=== PATIENT | male | born 1975 | race Caucasian/White ===

== ENCOUNTER 2017-09-01 08:10 | Emergency (ER) | payer MEDICAID ==
[~2017-09-01] VITALS: Ht 167.6 cm; Wt 90.7 kg
--- NOTE | 2017-09-01 08:25 | NUR ---
HEARING AND "SEEING" VOICES X 3 DAYS DENIES SI/HI. ADMITS TO USING METH AND COCAINE YESTERDAY
[2017-09-01] MEDS ORDERED: OLANZAPINE 5 MG TABLET ONE (08:37)
[2017-09-01] MEDS ORDERED: OLANZAPINE 5 MG TABLET PO ONE (09:00)
[2017-09-01 09:23] LABS: BASOPHILS # (AUTO) 0.4 /CMM (0.0-0.2); BASOPHILS % (AUTO) 1.5 % (0.0-2.0); EOSINOPHILS % (AUTO) 0.1 % (0.0-6.0); HEMATOCRIT 47 % (39-51); HEMOGLOBIN 16.4 g/dL (13.5-17.5); LYMPHOCYTES # (AUTO) 2.3 /CMM (0.8-4.8); LYMPHOCYTES % (AUTO) 9.3 % (20.0-44.0); MEAN CORPUSCULAR HGB CONC 35 g/dl (31.0-36.0); MEAN CORPUSCULAR VOLUME 87 fL (80-96); MONOCYTES # (AUTO) 2.2 /CMM (0.1-1.30); MONOCYTES % (AUTO) 9.2 % (2.0-12.0); NEUTROPHILS # (AUTO) 19.5 /CMM (1.8-8.9); NEUTROPHILS % (AUTO) 79.9 % (43.0-81.0); PLATELET COUNT (AUTO) 311 /CMM (150-450); RDW COEFFICIENT OF VARIATION 13.4 (11.5-15.0); RED BLOOD CELL COUNT(AUTO) 5.35 MIL/uL (4.5-6.0); WHITE BLOOD COUNT (AUTO) 24.4 K/uL (4.3-11.0)
[2017-09-01 09:42] LABS: ALANINE AMINOTRANSFERASE 126 U/L (12-78); ALBUMIN 4.9 g/dL (3.4-5.0); ALKALINE PHOSPHATASE 66 U/L (46-116); ASPARTATE AMINOTRANSFERASE 156 U/L (15-37); BILIRUBIN,DIRECT 0.1 mg/dL (0.0-0.2); BILIRUBIN,TOTAL 0.8 mg/dL (0.2-1.0); CALCIUM, SERUM 9.6 mg/dL (8.5-10.1); CARBON DIOXIDE 24 mmol/L (21-32); CHLORIDE 100 mmol/L (98-107); CREATININE 1.9 mg/dL (0.6-1.3); GLUCOSE 118 mg/dL (74-106); POTASSIUM 4.3 mmol/L (3.5-5.1); SODIUM SERUM 139 mmol/L (136-145); TOTAL PROTEIN, SERUM 9.7 g/dL (6.4-8.2); UREA NITROGEN, BLOOD 32 mg/dL (7-18)
[2017-09-01 09:43] LABS: ACETAMINOPHEN 0 ug/ml (10-30); SALICYLATE 2.4 mg/dL (2.8-20.0)
[2017-09-01 09:50] LABS: ALCOHOL, BLOOD < 3 mg/dL (0-0)
[2017-09-01 11:36] LABS: APPEARANCE,URINE Clear (CLEAR); BILIRUBIN,URINE Negative (NEGATIVE); BLOOD, URINE Moderate Ery/uL (NEGATIVE); COLOR,URINE Yellow (YELLOW); KETONES,URINE Negative (NEGATIVE); LEUKOCYTE ESTERASE ,URINE Negative (NEGATIVE); NITRITE, URINE Negative (NEGATIVE); PH,URINE 5.5 (5.0-8.0); PROTEIN,URINE >=300 mg/dl (NEGATIVE); UGLUCOSE Negative (NEGATIVE); UROBILINOGEN,URINE 0.2 EU/dL (0.2)
[2017-09-01 11:54] LABS: BACTERIA,URINE Few /HPF (None Seen); FINE GRANULAR CASTS,URINE Rare /LPF (None Seen); RBC,URINE 0-2 /HPF (0-2); SQUAMOUS EPITHELIAL CELL,UR Rare /HPF (None Seen); WBC,URINE 0-2 /HPF (0-3)
[2017-09-01] MEDS ORDERED: LORAZEPAM 1 MG TABLET ONE (12:27)
[2017-09-01] MEDS ORDERED: LORAZEPAM 1 MG TABLET PO ONE (12:30)
--- NOTE | 2017-09-01 14:45 | NUR ---
SPOKE TO [facility] PENA PT NOT A CANDIDATE FOR ADMISSION. DENIES SI/HI
--- NOTE | 2017-09-01 14:48 | NUR ---
SG CALLED FOR EVAL.
--- NOTE | 2017-09-01 15:42 | NUR ---
pinky at bedside for psych eval
[2017-09-01] MEDS ORDERED: OLANZAPINE 10 MG VIAL IM ONE ×2 (16:38→17:00)
[2017-09-01] MEDS ORDERED: LORAZEPAM INJ 2 MG/ML VIAL ONE (16:38)
[2017-09-01] MEDS ORDERED: LORAZEPAM INJ 2 MG/ML VIAL IM ONE (17:00)
--- NOTE | 2017-09-01 17:50 | NUR ---
[facility] CALLED. REFUSED TOLD NOT ABLE TO TRANSPORT THROUGH URGENT CARE.
--- NOTE | 2017-09-01 18:00 | NUR ---
[facility] CALLED ETA 1634
--- NOTE | 2017-09-01 18:12 | NUR ---
[facility] CALLED [facility] TRANSPORT 2HR AND 30MIN.
--- NOTE | 2017-09-01 18:38 | NUR ---
REPORT GIVEN TO URGENT CARE RN FOR CONTINUITY OF CARE AT [facility]
--- NOTE | 2017-09-01 18:42 | NUR ---
REPORT GIVEN TO [facility] FOR TRANSPORT TO [facility]
[2017-09-01 18:45] VITALS: BP 141/99
[2017-09-01] MEDS ORDERED: TRAZODONE HCL 150 MG (18:53)
[2017-09-01] MEDS ORDERED: ESCITALOPRAM 20 MG (18:53)
[2017-09-01] MEDS ORDERED: BANOPHEN 50 MG (18:53)
== END 2017-09-01 18:47 ==
LOC: ER 08:23
DX: R44.0 Auditory hallucinations (principal); F20.9 Schizophrenia, unspecified
CPT/HCPCS: 36415; 80048-TC; 80076-TC; 80305; 81000-TC; 85025-TC; A4606; G0480; J2060; J3490; Z7610

== ENCOUNTER 2017-09-27 13:12 | Emergency (ER) | payer MEDICAID ==
[~2017-09-27] VITALS: Ht 167.6 cm; Wt 88.5 kg
[~2017-09-27 13:12] MED LIST: BANOPHEN 50 MG; ESCITALOPRAM 20 MG; TRAZODONE HCL 150 MG
--- NOTE | 2017-09-27 13:15 | NUR ---
CALLED FOR TRIAGE, NO RESPONSE, PT PHYSICALLY NOT IN WAITING ROOM
--- NOTE | 2017-09-27 13:25 | NUR ---
CALLED FOR TRIAGE, NO RESPONSE, PT PHYSICALLY NOT IN WAITING ROOM
--- NOTE | 2017-09-27 14:15 | NUR ---
DR HOFFMANN IS AT THE BEDSIDE.
--- NOTE | 2017-09-27 14:17 | NUR ---
PT STATED THAT HE WAS FEELING SI. PT STATED: "THE VOICES WERE TELLING ME TO TAKE A KNIFE AND SLIGHT MY SISTER'S THROAT. I TOLD MY SISTER AND SHE WAS GOING TO CALL THE LUMBER PILER OPERATOR". PT WANTED TO KNOW IF WE HAD KNIVES HERE. PT WAS TOLD THAT WE DO NOT HAVE KNIVES. PT STATED THAT HE WAS GLAD BECAUSE HE WAS SUICIDAL. PT IS EXPRESSING MANIC BEHAVIOR.
--- NOTE | 2017-09-27 14:20 | NUR ---
URINE SAMPLE OBTAINED AND GIVEN TO LAB.
[2017-09-27] MEDS ORDERED: OLANZAPINE 10 MG VIAL IM ONE ×2 (14:30→14:38)
[2017-09-27 14:33] LABS: APPEARANCE,URINE Clear (CLEAR); BILIRUBIN,URINE Negative (NEGATIVE); BLOOD, URINE Negative Ery/uL (NEGATIVE); COLOR,URINE Yellow (YELLOW); KETONES,URINE Negative (NEGATIVE); LEUKOCYTE ESTERASE ,URINE Negative (NEGATIVE); NITRITE, URINE Negative (NEGATIVE); PROTEIN,URINE 100 mg/dl (NEGATIVE); UGLUCOSE Negative (NEGATIVE); UROBILINOGEN,URINE 0.2 EU/dL (0.2)
[2017-09-27 14:37] LABS: BACTERIA,URINE Rare /HPF (None Seen); RBC,URINE 0-2 /HPF (0-2); SQUAMOUS EPITHELIAL CELL,UR Rare /HPF (None Seen); WBC,URINE 0-2 /HPF (0-3)
[2017-09-27 14:48] LABS: BASOPHILS # (AUTO) 0.2 /CMM (0.0-0.2); BASOPHILS % (AUTO) 1.1 % (0.0-2.0); EOSINOPHILS % (AUTO) 0.1 % (0.0-6.0); HEMATOCRIT 46 % (39-51); HEMOGLOBIN 15.3 g/dL (13.5-17.5); LYMPHOCYTES % (AUTO) 11.2 % (20.0-44.0); MEAN CORPUSCULAR HEMOGLOBIN 29 PG (26.0-33.0); MEAN CORPUSCULAR HGB CONC 33 g/dl (31.0-36.0); MEAN CORPUSCULAR VOLUME 89 fL (80-96); MONOCYTES # (AUTO) 1.4 /CMM (0.1-1.30); NEUTROPHILS % (AUTO) 79.6 % (43.0-81.0); PLATELET COUNT (AUTO) 276 /CMM (150-450); RDW COEFFICIENT OF VARIATION 13.7 (11.5-15.0); RED BLOOD CELL COUNT(AUTO) 5.21 MIL/uL (4.5-6.0); WHITE BLOOD COUNT (AUTO) 17.6 K/uL (4.3-11.0)
[2017-09-27 15:00] LABS: CALCIUM, SERUM 9.7 mg/dL (8.5-10.1); CARBON DIOXIDE 25 mmol/L (21-32); CHLORIDE 100 mmol/L (98-107); CREATININE 1.2 mg/dL (0.6-1.3); GLUCOSE 134 mg/dL (74-106); POTASSIUM 3.5 mmol/L (3.5-5.1); SODIUM SERUM 138 mmol/L (136-145); UREA NITROGEN, BLOOD 15 mg/dL (7-18)
[2017-09-27 15:07] LABS: ACETAMINOPHEN 0 ug/ml (10-30); ALANINE AMINOTRANSFERASE 48 U/L (12-78); ALBUMIN 4.8 g/dL (3.4-5.0); ALCOHOL, BLOOD < 3 mg/dL (0-0); ALKALINE PHOSPHATASE 68 U/L (46-116); ASPARTATE AMINOTRANSFERASE 53 U/L (15-37); BILIRUBIN,DIRECT 0.1 mg/dL (0.0-0.2); BILIRUBIN,TOTAL 0.8 mg/dL (0.2-1.0); SALICYLATE 2.4 mg/dL (2.8-20.0)
--- NOTE | 2017-09-27 15:28 | NUR ---
JOSE HOLT, ARRIVED AND IS REVIEWING PT'S CHART
--- NOTE | 2017-09-27 15:33 | NUR ---
JOSE HOTL, AT THE BEDSIDE FOR EVAL.
[2017-09-27 17:40] VITALS: BP 128/67
--- NOTE | 2017-09-27 17:40 | NUR ---
PT APPEARS TO BE RESTING COMFORTABLY. NO S/S OF PAIN OR DISTRESS.
--- NOTE | 2017-09-27 17:52 | NUR ---
ORDERED DINNER TRAY FOR THE PT.
--- NOTE | 2017-09-27 18:05 | NUR ---
PT REC'D A DINNER TRAY. PT IS TOLERATING PO WELL.
--- NOTE | 2017-09-27 18:30 | NUR ---
PT APPEARS TO BE RESTING COMFORTABLY WITH NO S/S OF PAIN OR DISTRESS.
--- NOTE | 2017-09-27 19:10 | NUR ---
REPORT GIVEN TO LUCAS KOEHLER FOR JADEN.
--- NOTE | 2017-09-27 20:01 | NUR ---
PT ACCEPTED TO [facility] BY DR URRUTIA. # FOR REPORT [phone]
--- NOTE | 2017-09-27 20:14 | NUR ---
REPORT GIVEN TO DEYSI AT [facility]
--- NOTE | 2017-09-27 20:33 | NUR ---
[facility] AT BEDSIDE FOR TRANSPORT TO [facility].
== END 2017-09-27 20:40 ==
LOC: ER 13:14
DX: F23 Brief psychotic disorder (principal); F15.10 Other stimulant abuse, uncomplicated; F30.9 Manic episode, unspecified
CPT/HCPCS: 36415; 80048; 80076; 80305; 80329; 81001; 85025; 96372; 99285; A4606; G0480 ×2; J3490; Z7610; 81000-TC

== ENCOUNTER 2017-10-23 22:56 | Emergency (ER) | payer MEDICAID ==
[~2017-10-23] VITALS: Ht 167.6 cm; Wt 88.5 kg
[2017-10-23 23:25] LABS: BASOPHILS # (AUTO) 0.1 /CMM (0.0-0.2); BASOPHILS % (AUTO) 0.4 % (0.0-2.0); EOSINOPHILS % (AUTO) 0.9 % (0.0-6.0); HEMATOCRIT 49 % (39-51); HEMOGLOBIN 16.7 g/dL (13.5-17.5); LYMPHOCYTES # (AUTO) 2.1 /CMM (0.8-4.8); LYMPHOCYTES % (AUTO) 15.8 % (20.0-44.0); MEAN CORPUSCULAR HEMOGLOBIN 31 PG (26.0-33.0); MEAN CORPUSCULAR HGB CONC 34 g/dl (31.0-36.0); MEAN CORPUSCULAR VOLUME 91 fL (80-96); MONOCYTES # (AUTO) 1.1 /CMM (0.1-1.30); MONOCYTES % (AUTO) 8.1 % (2.0-12.0); NEUTROPHILS # (AUTO) 10.1 /CMM (1.8-8.9); NEUTROPHILS % (AUTO) 74.8 % (43.0-81.0); PLATELET COUNT (AUTO) 281 /CMM (150-450); RDW COEFFICIENT OF VARIATION 15.2 (11.5-15.0); RED BLOOD CELL COUNT(AUTO) 5.44 MIL/uL (4.5-6.0); WHITE BLOOD COUNT (AUTO) 13.5 K/uL (4.3-11.0)
[2017-10-23 23:28] LABS: APPEARANCE,URINE CLEAR (CLEAR); BILIRUBIN,URINE NEGATIVE (NEGATIVE); BLOOD, URINE TRACE-INTA Ery/uL (NEGATIVE); COLOR,URINE DARK YELLO (YELLOW); KETONES,URINE NEGATIVE (NEGATIVE); LEUKOCYTE ESTERASE ,URINE NEGATIVE (NEGATIVE); NITRITE, URINE NEGATIVE (NEGATIVE); PROTEIN,URINE 2+ mg/dl (NEGATIVE); UGLUCOSE NEGATIVE (NEGATIVE); UROBILINOGEN,URINE 0.2 EU/dL (0.2)
[2017-10-23 23:37] LABS: BACTERIA,URINE None seen /HPF (None Seen); SQUAMOUS EPITHELIAL CELL,UR Few /HPF (None Seen); WBC,URINE 0-2 /HPF (0-3)
[2017-10-23 23:38] LABS: SPERM,URINE Moderate /HPF (None Seen)
[2017-10-23 23:41] LABS: ALANINE AMINOTRANSFERASE 62 U/L (12-78); ALBUMIN 4.8 g/dL (3.4-5.0); ALKALINE PHOSPHATASE 64 U/L (46-116); ASPARTATE AMINOTRANSFERASE 67 U/L (15-37); BILIRUBIN,DIRECT 0.2 mg/dL (0.0-0.2); CALCIUM, SERUM 9.2 mg/dL (8.5-10.1); CARBON DIOXIDE 23 mmol/L (21-32); CHLORIDE 98 mmol/L (98-107); CREATININE 1.4 mg/dL (0.6-1.3); GLUCOSE 116 mg/dL (74-106); POTASSIUM 3.5 mmol/L (3.5-5.1); SODIUM SERUM 136 mmol/L (136-145); TOTAL PROTEIN, SERUM 9.2 g/dL (6.4-8.2); UREA NITROGEN, BLOOD 14 mg/dL (7-18)
--- NOTE | 2017-10-24 00:02 | NUR ---
BB SELF: SI DENIES HI. PLAN TO RUN INTO TRAFFIC. PT IS AAOX4. SKIN WNL. RESP EVEN AND UNLABORED. NO S/S OF ACUTE DISTRESS NOTED. PT PLACED ON MONITOR AND POX. PT SAFETY AND COMFORT MEASURES IN PLACE. SI PRECAUTIONS IN PLACE. WILL CONTINUE TO MONITOR PT
[2017-10-24 00:12] LABS: ACETAMINOPHEN 0 ug/ml (10-30)
[2017-10-24 00:15] LABS: ALCOHOL, BLOOD < 3 mg/dL (0-0)
--- NOTE | 2017-10-24 01:00 | NUR ---
KENDY NICOLE BEDSIDE FOR EVAL
--- NOTE | 2017-10-24 02:44 | NUR ---
ASSUMED D/C CARE ONLY AT THIS TIME ON BEHALF OF PRIMARY NURSE DEON. Patient discharged to home in stable condition after receiving both medical and psych clearance. Written and verbal after care instructions given. Patient verbalizes understanding of instruction. Given juice and sandwich and given referrals for f/u. Ambulatory with a steady gait.
[2017-10-24 02:45] VITALS: BP 125/75
== END 2017-10-24 02:46 | disposition home or self-care (01) ==
LOC: ER 22:58
DX: R45.851 Suicidal ideations (principal); F19.10 Other psychoactive substance abuse, uncomplicated; F30.2 Manic episode, severe with psychotic symptoms; F15.10 Other stimulant abuse, uncomplicated; F12.10 Cannabis abuse, uncomplicated
CPT/HCPCS: 36415; 80048-TC; 80076-TC; 80305; 81000-TC; 85025-TC; A4606; G0480; Z7610

== ENCOUNTER 2017-11-13 02:20 | Emergency (ER) | payer MEDICAID ==
[~2017-11-13] VITALS: Ht 165.1 cm; Wt 79.8 kg
--- NOTE | 2017-11-13 02:40 | NUR ---
TRIAGED AND IN WAITING ROOM ATTEMPTING TO PROVIDE URINE SAMPLE. DENIES ANY MEDICAL C/O AT THIS TIME. STATES "GIVE ME THE URINE CUP AND WILL GIVE URINE WHENEVER I CAN AND WILL THEN GET INTO THE ROOM".
[2017-11-13 03:09] LABS: BASOPHILS # (AUTO) 0.1 /CMM (0.0-0.2); BASOPHILS % (AUTO) 0.6 % (0.0-2.0); EOSINOPHILS % (AUTO) 0.1 % (0.0-6.0); HEMATOCRIT 49 % (39-51); HEMOGLOBIN 16.4 g/dL (13.5-17.5); LYMPHOCYTES # (AUTO) 2.4 /CMM (0.8-4.8); LYMPHOCYTES % (AUTO) 16.7 % (20.0-44.0); MEAN CORPUSCULAR HEMOGLOBIN 31 PG (26.0-33.0); MEAN CORPUSCULAR HGB CONC 34 g/dl (31.0-36.0); MEAN CORPUSCULAR VOLUME 90 fL (80-96); MONOCYTES # (AUTO) 1.1 /CMM (0.1-1.30); MONOCYTES % (AUTO) 7.5 % (2.0-12.0); NEUTROPHILS # (AUTO) 10.6 /CMM (1.8-8.9); NEUTROPHILS % (AUTO) 75.1 % (43.0-81.0); PLATELET COUNT (AUTO) 294 /CMM (150-450); RDW COEFFICIENT OF VARIATION 14.9 (11.5-15.0); RED BLOOD CELL COUNT(AUTO) 5.38 MIL/uL (4.5-6.0); WHITE BLOOD COUNT (AUTO) 14.1 K/uL (4.3-11.0)
[2017-11-13 03:20] LABS: ALANINE AMINOTRANSFERASE 63 U/L (12-78); ALBUMIN 4.9 g/dL (3.4-5.0); ALCOHOL, BLOOD < 3 mg/dL (0-0); ALKALINE PHOSPHATASE 66 U/L (46-116); ASPARTATE AMINOTRANSFERASE 39 U/L (15-37); BILIRUBIN,DIRECT 0.1 mg/dL (0.0-0.2); BILIRUBIN,TOTAL 0.4 mg/dL (0.2-1.0); CALCIUM, SERUM 9.3 mg/dL (8.5-10.1); CARBON DIOXIDE 23 mmol/L (21-32); CHLORIDE 104 mmol/L (98-107); CREATININE 1.2 mg/dL (0.6-1.3); GLUCOSE 117 mg/dL (74-106); POTASSIUM 3.6 mmol/L (3.5-5.1); SALICYLATE 3.7 mg/dL (2.8-20.0); SODIUM SERUM 142 mmol/L (136-145); TOTAL PROTEIN, SERUM 9.2 g/dL (6.4-8.2); UREA NITROGEN, BLOOD 15 mg/dL (7-18)
--- NOTE | 2017-11-13 03:41 | NUR ---
PT STILL HAS URINE CUP AND GOING BACK TO AND FROM THE RESTROOM. STATES "NO URINE YET BUT WILL TRY AGAIN BEFORE I GET IN THE ROOM".
[2017-11-13 05:02] LABS: APPEARANCE,URINE CLEAR (CLEAR); BILIRUBIN,URINE NEGATIVE (NEGATIVE); BLOOD, URINE NEGATIVE Ery/uL (NEGATIVE); COLOR,URINE YELLOW (YELLOW); KETONES,URINE NEGATIVE (NEGATIVE); LEUKOCYTE ESTERASE ,URINE NEGATIVE (NEGATIVE); NITRITE, URINE NEGATIVE (NEGATIVE); PH,URINE 5.5 (5.0-8.0); PROTEIN,URINE 1+ mg/dl (NEGATIVE); UGLUCOSE NEGATIVE (NEGATIVE); UROBILINOGEN,URINE 0.2 EU/dL (0.2)
[2017-11-13 05:13] LABS: BACTERIA,URINE Rare /HPF (None Seen); RBC,URINE 0-2 /HPF (0-2); SQUAMOUS EPITHELIAL CELL,UR Rare /HPF (None Seen); WBC,URINE 0-2 /HPF (0-3)
[2017-11-13 05:16] LABS: ACETAMINOPHEN 0 ug/ml (10-30)
--- NOTE | 2017-11-13 05:28 | NUR ---
ALL REPORTS TO BE FAXED TO [facility]. PER LILLIE "WAITING FOR DR. FANG TO CALL BACK BUT I HAVE A BED FOR THE PT.
--- NOTE | 2017-11-13 06:24 | NUR ---
AWAITING CALL BACK FROM [facility]. PT NOTIFIED.
--- NOTE | 2017-11-13 07:09 | NUR ---
PT TO BE TRANSFERED TO [facility]. VOUCHER AND CHART GIVEN TO CHG NURSE CESAR.
--- NOTE | 2017-11-13 17:24 | NUR ---
PATIENT WILL BE TRANSFERED [address] BY DR URRUTIA. NUMBER TO GIVE REPORT IS CALLED [facility] FOR TRANSPORT ETA OF 1830 WAS GIVEN. TRIP#[id number]
[2017-11-13 17:32] VITALS: BP 138/87
--- NOTE | 2017-11-13 17:33 | NUR ---
REPORT GIVEN TO SHERWIN ZAVALA AT [facility] AT [phone]
== END 2017-11-13 06:47 | disposition home or self-care (01) ==
LOC: ER 02:22
DX: F32.9 Major depressive disorder, single episode, unspecified (principal); F20.9 Schizophrenia, unspecified
CPT/HCPCS: 36415; 80048; 80076; 80305; 80329; 81001; 85025; 99285; A4606; G0480 ×2; Z7610; 81000-TC

== ENCOUNTER 2017-12-25 17:45 | Emergency (ER) | payer MEDICAID, OTHER ==
[~2017-12-25] VITALS: Ht 165.1 cm; Wt 81.6 kg
[2017-12-25 18:45] LABS: BASOPHILS # (AUTO) 0.2 /CMM (0.0-0.2); BASOPHILS % (AUTO) 1.3 % (0.0-2.0); EOSINOPHILS % (AUTO) 0.5 % (0.0-6.0); HEMATOCRIT 50 % (39-51); HEMOGLOBIN 16.3 g/dL (13.5-17.5); LYMPHOCYTES # (AUTO) 1.9 /CMM (0.8-4.8); LYMPHOCYTES % (AUTO) 12.9 % (20.0-44.0); MEAN CORPUSCULAR HGB CONC 33 g/dl (31.0-36.0); MEAN CORPUSCULAR VOLUME 89 fL (80-96); MONOCYTES % (AUTO) 6.7 % (2.0-12.0); NEUTROPHILS # (AUTO) 11.7 /CMM (1.8-8.9); NEUTROPHILS % (AUTO) 78.6 % (43.0-81.0); PLATELET COUNT (AUTO) 312 /CMM (150-450); RDW COEFFICIENT OF VARIATION 13.6 (11.5-15.0); WHITE BLOOD COUNT (AUTO) 14.9 K/uL (4.3-11.0)
[2017-12-25 19:03] LABS: CALCIUM, SERUM 9.5 mg/dL (8.5-10.1); CARBON DIOXIDE 26 mmol/L (21-32); CHLORIDE 101 mmol/L (98-107); GLUCOSE 102 mg/dL (74-106); SODIUM SERUM 136 mmol/L (136-145); UREA NITROGEN, BLOOD 13 mg/dL (7-18)
[2017-12-25 19:15] LABS: ALANINE AMINOTRANSFERASE 68 U/L (12-78); ALBUMIN 4.5 g/dL (3.4-5.0); ALKALINE PHOSPHATASE 72 U/L (46-116); ASPARTATE AMINOTRANSFERASE 37 U/L (15-37); BILIRUBIN,DIRECT 0.1 mg/dL (0.0-0.2); BILIRUBIN,TOTAL 0.5 mg/dL (0.2-1.0); SALICYLATE 2.6 mg/dL (2.8-20.0); TOTAL PROTEIN, SERUM 8.8 g/dL (6.4-8.2)
[2017-12-25 19:16] LABS: ACETAMINOPHEN < 2 ug/ml (10-30); ALCOHOL, BLOOD < 3 mg/dL (0-0)
--- NOTE | 2017-12-25 19:47 | NUR ---
PT AA/OX4. C/C PSYCH EVAL. "I AM HEARING VOICES, THEY ARE TELLING ME TO KILL MY SISTER." NO S/S SOB. SKIN PINK, WARM, DRY. AMBULATED TO BED WITH STABLE GAIT. MOVES ALL EXTREMITIES. WELL. NAD. VSS. WILL CONTINUE TO MONITOR.
--- NOTE | 2017-12-25 20:00 | NUR ---
RESTING COMFORTABLY IN BED. STABLE CONDITION. VSS. NAD.
[2017-12-25 20:40] LABS: APPEARANCE,URINE Clear (CLEAR); BILIRUBIN,URINE Negative (NEGATIVE); BLOOD, URINE Negative Ery/uL (NEGATIVE); COLOR,URINE Yellow (YELLOW); KETONES,URINE Trace (NEGATIVE); LEUKOCYTE ESTERASE ,URINE Negative (NEGATIVE); NITRITE, URINE Negative (NEGATIVE); PH,URINE 5.5 (5.0-8.0); PROTEIN,URINE 30 mg/dl (NEGATIVE); UGLUCOSE Negative (NEGATIVE); UROBILINOGEN,URINE 0.2 EU/dL (0.2)
--- NOTE | 2017-12-25 20:52 | NUR ---
PAGED CRISIS FOR EVAL
--- NOTE | 2017-12-25 21:03 | NUR ---
AMBULATED TO BATHROOM WITH STABLE GAIT.
[2017-12-25 21:04] LABS: BACTERIA,URINE Few /HPF (None Seen); MUCUS,URINE Many /LPF (None Seen); RBC,URINE 0-2 /HPF (0-2); SQUAMOUS EPITHELIAL CELL,UR Few /HPF (None Seen); WBC,URINE 0-2 /HPF (0-3)
--- NOTE | 2017-12-25 23:55 | NUR ---
SET UP BLS RIG WITH [facility]# [id number]
--- NOTE | 2017-12-26 00:08 | NUR ---
REPORT GIVEN TO [facility] LUCAS PACHECO
--- NOTE | 2017-12-26 01:52 | NUR ---
Patient discharged to home in stable condition. Written and verbal after care instructions given. Patient verbalizes understanding of instruction. AMBULATED WITH STEADY GAIT. INSTRUCTED NOT TO OPERATE OR DRIVE HEAVY MACHINERY
[2017-12-26 01:54] VITALS: BP 130/82
== END 2017-12-26 01:55 | disposition home or self-care (01) ==
LOC: ER 17:46
DX: R45.850 Homicidal ideations (principal); R45.851 Suicidal ideations; F20.9 Schizophrenia, unspecified; F41.9 Anxiety disorder, unspecified; F30.9 Manic episode, unspecified; F10.10 Alcohol abuse, uncomplicated; F15.10 Other stimulant abuse, uncomplicated; Y90.0 Blood alcohol level of less than 20 mg/100 ml
CPT/HCPCS: 36415; 80048; 80076; 80305; 80329; 81001; 85025; 99285; A4606; G0480 ×2; Z7610; 81000-TC

== ENCOUNTER 2018-01-05 14:34 | Emergency (ER) | payer OTHER ==
[~2018-01-05] VITALS: Ht 167.6 cm; Wt 99.8 kg
[2018-01-05] MEDS ORDERED: OLANZAPINE 5 MG TABLET PO ONE (15:00)
[2018-01-05] MEDS ORDERED: OLANZAPINE 5 MG TABLET ONE (15:06)
--- NOTE | 2018-01-05 15:09 | NUR ---
PT REC'D TO ER SUICIDAL THOUGHTS HERE FOR CLEARANCEAWAITING EVALUATION BY ER PROVIDER. MEDS PER
[2018-01-05 15:35] LABS: BASOPHILS % (AUTO) 0.3 % (0.0-2.0); EOSINOPHILS % (AUTO) 0.3 % (0.0-6.0); HEMATOCRIT 48 % (39-51); HEMOGLOBIN 15.7 g/dL (13.5-17.5); LYMPHOCYTES # (AUTO) 2.1 /CMM (0.8-4.8); LYMPHOCYTES % (AUTO) 17.2 % (20.0-44.0); MEAN CORPUSCULAR HGB CONC 33 g/dl (31.0-36.0); MEAN CORPUSCULAR VOLUME 91 fL (80-96); MONOCYTES # (AUTO) 0.9 /CMM (0.1-1.30); MONOCYTES % (AUTO) 7.4 % (2.0-12.0); NEUTROPHILS # (AUTO) 9.3 /CMM (1.8-8.9); NEUTROPHILS % (AUTO) 74.8 % (43.0-81.0); PLATELET COUNT (AUTO) 315 /CMM (150-450); RDW COEFFICIENT OF VARIATION 14.9 (11.5-15.0); RED BLOOD CELL COUNT(AUTO) 5.28 MIL/uL (4.5-6.0); WHITE BLOOD COUNT (AUTO) 12.4 K/uL (4.3-11.0)
[2018-01-05 15:38] LABS: APPEARANCE,URINE CLEAR (CLEAR); BILIRUBIN,URINE NEGATIVE (NEGATIVE); BLOOD, URINE 2+ Ery/uL (NEGATIVE); COLOR,URINE YELLOW (YELLOW); KETONES,URINE NEGATIVE (NEGATIVE); LEUKOCYTE ESTERASE ,URINE NEGATIVE (NEGATIVE); NITRITE, URINE NEGATIVE (NEGATIVE); PROTEIN,URINE 2+ mg/dl (NEGATIVE); UGLUCOSE NEGATIVE (NEGATIVE); UROBILINOGEN,URINE 0.2 EU/dL (0.2)
[2018-01-05 15:43] LABS: CALCIUM, SERUM 9.4 mg/dL (8.5-10.1); CARBON DIOXIDE 24 mmol/L (21-32); CHLORIDE 103 mmol/L (98-107); CREATININE 1.2 mg/dL (0.6-1.3); GLUCOSE 151 mg/dL (74-106); POTASSIUM 3.9 mmol/L (3.5-5.1); SODIUM SERUM 140 mmol/L (136-145); UREA NITROGEN, BLOOD 17 mg/dL (7-18)
[2018-01-05 15:50] LABS: ACETAMINOPHEN 0 ug/ml (10-30); ALANINE AMINOTRANSFERASE 81 U/L (12-78); ALBUMIN 4.6 g/dL (3.4-5.0); ALCOHOL, BLOOD < 3 mg/dL (0-0); ALKALINE PHOSPHATASE 59 U/L (46-116); ASPARTATE AMINOTRANSFERASE 100 U/L (15-37); BILIRUBIN,DIRECT 0.1 mg/dL (0.0-0.2); BILIRUBIN,TOTAL 0.7 mg/dL (0.2-1.0); SALICYLATE 1.7 mg/dL (2.8-20.0); TOTAL PROTEIN, SERUM 8.8 g/dL (6.4-8.2)
[2018-01-05 16:01] LABS: BACTERIA,URINE 1+ /HPF (None Seen); SQUAMOUS EPITHELIAL CELL,UR 0-2 /HPF (None Seen); WBC,URINE 0-2 /HPF (0-3)
[2018-01-05 16:02] LABS: HYALINE CASTS, URINE Rare /LPF (None Seen); MUCUS,URINE Few /LPF (None Seen)
--- NOTE | 2018-01-05 18:10 | NUR ---
PT SLEEPING SOUNDLY RESP EVEN UNLABORED
--- NOTE | 2018-01-05 19:13 | NUR ---
Patient is resting comfortably in bed with eyes closed. Easily aroused. VSS. STABLE CONDITION.
--- NOTE | 2018-01-05 20:13 | NUR ---
SITTING UPRIGHT, STABLE CONDITION. VSS. NAD. WILL CONTINUE TO MONITOR.
--- NOTE | 2018-01-05 22:16 | NUR ---
[facility] DR. FANG REPORT: [phone]
--- NOTE | 2018-01-05 22:24 | NUR ---
JENNIFER SIEGEL 11:50P TRIP# [id number]
--- NOTE | 2018-01-05 22:33 | NUR ---
PT TO BE TRANSFERED TO [facility] FOR PSYCHIC EVAL, RPORT GIVEN TO ASUNCION ZAVALA, ETA 2330. AWAITING STOCK PARTS INSPECTOR. Addendum: 01/05/18 at 2340 by GKPATRICK AWAITING FOR TTRANSFER ATIVAN GIVEN BP 179/107 123,AWAITING RECHECKING FOR BP
[2018-01-05] MEDS ORDERED: LORAZEPAM 1 MG TABLET ONE (23:23)
[2018-01-05] MEDS ORDERED: LORAZEPAM 1 MG TABLET PO ONE (23:30)
--- NOTE | 2018-01-06 00:38 | NUR ---
BE RODRIGUEZ UNABLE TO TRANSPORT PT TO [facility] D/T HR 130 BP 148/100 PT ASYMPTOMATIC. PT PLACED ON WILL CALL. DR. GILES MADE AWARE
[2018-01-06] MEDS ORDERED: METOPROLOL SUCCINATE 25 MG TAB.SR.24H PO SCH (01:00)
[2018-01-06] MEDS ORDERED: METOPROLOL SUCCINATE 25 MG TAB.SR.24H ONE (01:15)
--- NOTE | 2018-01-06 03:04 | NUR ---
CALLED RAMIRO ZAVALA SUP FROM [facility], AWARE PT CURRENT VITALS. OKAY TO ADMIT AT FACILITY
--- NOTE | 2018-01-06 03:09 | NUR ---
AMBULANCE CONTACTED FOR PATIENT PONY RIDE OPERATOR. ETA 0500. REFERENCE NUMBER [id number]
--- NOTE | 2018-01-06 04:56 | NUR ---
REPORT GIVEN TO RN TO [facility] EMT FOR JADEN, PT VSS, PT AWARE OF TRANSPORT WITH ALL BELONGINGS, PT TO BE TRANSPORTED TO [facility]. [facility] RODRIG[facility] TOOK OVER CARE.
[2018-01-12 20:10] VITALS: BP 135/88
== END 2018-01-06 04:56 ==
LOC: ER 14:35
DX: F29 Unspecified psychosis not due to a substance or known physiological condition (principal); F20.9 Schizophrenia, unspecified; F32.9 Major depressive disorder, single episode, unspecified; F10.10 Alcohol abuse, uncomplicated; F15.10 Other stimulant abuse, uncomplicated; Y90.0 Blood alcohol level of less than 20 mg/100 ml
CPT/HCPCS: 36415; 80048; 80076; 80305; 80329; 81001; 85025; 99284; A4606; G0480 ×2; Z7610; 81000-TC

== ENCOUNTER 2018-01-31 03:16 | Emergency (ER) | payer MEDICAID ==
[~2018-01-31] VITALS: Ht 167.6 cm; Wt 99.8 kg
[2018-01-31 03:31] VITALS: BP 167/101
[2018-01-31] MEDS ORDERED: KETOROLAC TROMETHAMINE INJ 60 MG/2 ML VIAL IM ONE ×2 (03:48→04:00)
== END 2018-01-31 04:29 | disposition home or self-care (01) ==
LOC: ER 03:23
DX: G89.29 Other chronic pain (principal); M54.5 Low back pain; F17.200 Nicotine dependence, unspecified, uncomplicated; F32.9 Major depressive disorder, single episode, unspecified; F20.9 Schizophrenia, unspecified; F10.10 Alcohol abuse, uncomplicated; Y90.9 Presence of alcohol in blood, level not specified; W18.39XA Other fall on same level, initial encounter; Y93.89 Activity, other specified; Y92.89 Other specified places as the place of occurrence of the external cause; Y99.8 Other external cause status
CPT/HCPCS: 72110-TC; A4606; J1885; Z7610

== ENCOUNTER 2018-03-01 19:30 | Emergency (ER) | payer MEDICAID ==
[~2018-03-01] VITALS: Ht 167.6 cm; Wt 88.5 kg
--- NOTE | 2018-03-01 20:10 | NUR ---
BBSELF C/C "IM HEARING VOICES TO CUT MY SISTERS THROAT AND KILL MYSELF W/ A BLADE".+SI,+HI.PT STATES "TONJA TRIED HANGING MYSELF BY HANGING".DENIES DRUGS. PT BED 5, AOX4, HR 136, BP 153/94, R 20, O2 97%. VERY TALKATIVE. SUICIDE PRECAUTIONS IMPLEMENTED: HAS A SITTER WITHIN 1 FOOT OF PT, BELONGINGS OUT OF ROOM. SEEN BY DR APONTE. WAITING FOR ORDERS.
--- NOTE | 2018-03-01 20:14 | NUR ---
CALLED SULFURIC ACID PLANT OPERATOR FOR A ONE TO ONE SITTER.
[2018-03-01 20:27] LABS: BASOPHILS # (AUTO) 0.1 /CMM (0.0-0.2); BASOPHILS % (AUTO) 0.5 % (0.0-2.0); EOSINOPHILS % (AUTO) 0.2 % (0.0-6.0); HEMATOCRIT 49 % (39-51); HEMOGLOBIN 16.6 g/dL (13.5-17.5); LYMPHOCYTES # (AUTO) 1.7 /CMM (0.8-4.8); LYMPHOCYTES % (AUTO) 9.7 % (20.0-44.0); MEAN CORPUSCULAR HGB CONC 34 g/dl (31.0-36.0); MEAN CORPUSCULAR VOLUME 89 fL (80-96); MONOCYTES # (AUTO) 1.1 /CMM (0.1-1.30); MONOCYTES % (AUTO) 5.9 % (2.0-12.0); NEUTROPHILS % (AUTO) 83.7 % (43.0-81.0); PLATELET COUNT (AUTO) 290 /CMM (150-450); RED BLOOD CELL COUNT(AUTO) 5.51 MIL/uL (4.5-6.0); WHITE BLOOD COUNT (AUTO) 17.9 K/uL (4.3-11.0)
[2018-03-01 20:37] LABS: CALCIUM, SERUM 9.8 mg/dL (8.5-10.1); CARBON DIOXIDE 25 mmol/L (21-32); CHLORIDE 105 mmol/L (98-107); CREATININE 1.3 mg/dL (0.6-1.3); GLUCOSE 106 mg/dL (74-106); POTASSIUM 4.4 mmol/L (3.5-5.1); SODIUM SERUM 143 mmol/L (136-145); UREA NITROGEN, BLOOD 19 mg/dL (7-18)
[2018-03-01 20:43] LABS: ALANINE AMINOTRANSFERASE 102 U/L (12-78); ALBUMIN 4.6 g/dL (3.4-5.0); ALKALINE PHOSPHATASE 71 U/L (46-116); ASPARTATE AMINOTRANSFERASE 45 U/L (15-37); BILIRUBIN,DIRECT 0.1 mg/dL (0.0-0.2); BILIRUBIN,TOTAL 0.4 mg/dL (0.2-1.0); SALICYLATE 2.8 mg/dL (2.8-20.0); TOTAL PROTEIN, SERUM 8.8 g/dL (6.4-8.2)
[2018-03-01 20:44] LABS: ACETAMINOPHEN 0 ug/ml (10-30); ALCOHOL, BLOOD < 3 mg/dL (0-0)
--- NOTE | 2018-03-01 21:26 | NUR ---
SITTER LEFT THE BEDSIDE. I ASSUMED CARE OF PT SITTER. PT IS TALKING NON STOP. PT IS ALSO TRYING TO GIVE A URINE SAMPLE.
--- NOTE | 2018-03-01 21:48 | NUR ---
ULCAS BRYANT IS AT THE BEDSIDE SPEAKING TO THE PT.
[2018-03-01] MEDS ORDERED: OLANZAPINE 5 MG TABLET ONE (21:55)
[2018-03-01] MEDS ORDERED: OLANZAPINE 5 MG TABLET PO ONE (22:00)
--- NOTE | 2018-03-01 22:01 | NUR ---
PT TOOK MEDICATION ORDERED.
--- NOTE | 2018-03-01 22:16 | NUR ---
URINE SAMPLE OBTAINED AND SENT TO LAB.
[2018-03-01 22:32] LABS: APPEARANCE,URINE CLEAR (CLEAR); BILIRUBIN,URINE NEGATIVE (NEGATIVE); BLOOD, URINE NEGATIVE Ery/uL (NEGATIVE); COLOR,URINE YELLOW (YELLOW); KETONES,URINE NEGATIVE (NEGATIVE); LEUKOCYTE ESTERASE ,URINE NEGATIVE (NEGATIVE); NITRITE, URINE NEGATIVE (NEGATIVE); PH,URINE 5.5 (5.0-8.0); PROTEIN,URINE NEGATIVE (NEGATIVE); UGLUCOSE NEGATIVE (NEGATIVE); UROBILINOGEN,URINE 0.2 EU/dL (0.2)
--- NOTE | 2018-03-01 22:45 | NUR ---
JENNIFER SIEGEL 1HR. TRIP# [id number]
--- NOTE | 2018-03-01 23:00 | NUR ---
CALL REPORT AT ext. [phone]
--- NOTE | 2018-03-01 23:52 | NUR ---
CALLING REPORT TO [facility],
--- NOTE | 2018-03-01 23:54 | NUR ---
REPORT GIVEN LUCAS CURTIS .
[2018-03-02 00:05] VITALS: BP 148/89
== END 2018-03-02 00:06 ==
LOC: ER 19:33
DX: R45.851 Suicidal ideations (principal); R45.850 Homicidal ideations; F15.10 Other stimulant abuse, uncomplicated; F20.9 Schizophrenia, unspecified; F30.9 Manic episode, unspecified; F10.10 Alcohol abuse, uncomplicated; Y90.0 Blood alcohol level of less than 20 mg/100 ml
CPT/HCPCS: 36415; 80048-TC; 80076-TC; 80305; 81000-TC; 85025-TC; A4606; G0480; Z7610

== ENCOUNTER 2018-10-17 09:06 | Emergency (ER) | payer MEDICAID ==
[~2018-10-17] VITALS: Ht 167.6 cm; Wt 83.0 kg
--- NOTE | 2018-10-17 09:10 | NUR ---
"I had unprotected sex 3mos ago was exposed to hepatitis Im here to find out if there are pills to get it better" Patient a/ox2-3, appears to be drunk. No distress noted. Waiting for MD adrian.
[2018-10-17 09:30] VITALS: BP 149/79
== END 2018-10-17 10:06 | disposition home or self-care (01) ==
LOC: ER 09:10
DX: F28 Other psychotic disorder not due to a substance or known physiological condition (principal); F15.10 Other stimulant abuse, uncomplicated; F20.9 Schizophrenia, unspecified; F30.9 Manic episode, unspecified; Z79.899 Other long term (current) drug therapy

== ENCOUNTER 2018-10-19 03:24 | Emergency (ER) | payer MEDICAID ==
[~2018-10-19] VITALS: Ht 167.6 cm; Wt 86.2 kg
--- NOTE | 2018-10-19 03:58 | NUR ---
JOSEFINA, WALKED IN TO ER. TO ER BED 13. AAOX4. NAD NOTED, BREATHIN GEVEN AND UNLABORED. AMBULATROY. CAME IN FOR SUICIDAL IDEATION WITH PLAN TO CUT HIMSELF. DENIES HI. PT STATES THAT HE HEARS VOICES TELLINGHIM TO HURT HIMSELF. PT ALSO REPORTS THAT HE HAVENT BEEN TAKING HIS PSYCH MEDS FOR THE PAST WEEK BECAUSE THE MEDICATION MAKE HIM ANXIOUS. PT IS STRIPPED OF CLOTHING, BAGGED AND PLACE UNDER THE SINK BY THE NURSING STATION. URINE NOT COLLECTED AT THIS TIME D/T PT IS UNABLE TO URINATE. LAB AT BEDSIDE. LUZMA RAMIREZ
[2018-10-19 04:01] LABS: BASOPHILS # (AUTO) 0.1 /CMM (0.0-0.2); BASOPHILS % (AUTO) 0.4 % (0.0-2.0); EOSINOPHILS % (AUTO) 0.1 % (0.0-6.0); HEMATOCRIT 43 % (39-51); HEMOGLOBIN 14.3 g/dL (13.5-17.5); LYMPHOCYTES # (AUTO) 1.4 /CMM (0.8-4.8); LYMPHOCYTES % (AUTO) 9.7 % (20.0-44.0); MEAN CORPUSCULAR HGB CONC 34 g/dl (31.0-36.0); MEAN CORPUSCULAR VOLUME 90 fL (80-96); MONOCYTES # (AUTO) 1.3 /CMM (0.1-1.30); MONOCYTES % (AUTO) 9.4 % (2.0-12.0); NEUTROPHILS # (AUTO) 11.2 /CMM (1.8-8.9); NEUTROPHILS % (AUTO) 80.4 % (43.0-81.0); PLATELET COUNT (AUTO) 320 /CMM (150-450); RED BLOOD CELL COUNT(AUTO) 4.72 MIL/uL (4.5-6.0); WHITE BLOOD COUNT (AUTO) 13.9 K/uL (4.3-11.0)
--- NOTE | 2018-10-19 04:15 | NUR ---
PT PROVIDED WITH FOOD PER PT REQUEST
[2018-10-19 04:22] LABS: CALCIUM, SERUM 9.5 mg/dL (8.5-10.1); CARBON DIOXIDE 27 mmol/L (21-32); CHLORIDE 101 mmol/L (98-107); CREATININE 1.6 mg/dL (0.6-1.3); GLUCOSE 84 mg/dL (74-106); POTASSIUM 3.4 mmol/L (3.5-5.1); SODIUM SERUM 141 mmol/L (136-145); UREA NITROGEN, BLOOD 26 mg/dL (7-18)
[2018-10-19 04:25] LABS: ALANINE AMINOTRANSFERASE 78 U/L (12-78); ALBUMIN 4.4 g/dL (3.4-5.0); ALCOHOL, BLOOD < 3 mg/dL (0-0); ALKALINE PHOSPHATASE 62 U/L (46-116); ASPARTATE AMINOTRANSFERASE 83 U/L (15-37); BILIRUBIN,DIRECT 0.2 mg/dL (0.0-0.2); SALICYLATE 1.1 mg/dL (2.8-20.0); TOTAL PROTEIN, SERUM 8.2 g/dL (6.4-8.2)
[2018-10-19 04:27] LABS: ACETAMINOPHEN 0 ug/ml (10-30)
--- NOTE | 2018-10-19 05:01 | NUR ---
PT STILL UNABLE TO URINATE DESPITE DRINKING 4 WATER PITCHER OF WATER. NOTED PT IN THE BATHROOM TRYING TO TO URINATE BY UNABLE. AWARE
--- NOTE | 2018-10-19 05:11 | NUR ---
URINE COLLECTED AND SENT TO LAB
[2018-10-19 05:14] LABS: APPEARANCE,URINE Clear (CLEAR); BILIRUBIN,URINE SMALL (NEGATIVE); BLOOD, URINE Small Ery/uL (NEGATIVE); COLOR,URINE Yellow (YELLOW); KETONES,URINE Negative (NEGATIVE); LEUKOCYTE ESTERASE ,URINE Negative (NEGATIVE); NITRITE, URINE Negative (NEGATIVE); PH,URINE 5.5 (5.0-8.0); PROTEIN,URINE 30 mg/dl (NEGATIVE); UGLUCOSE Negative (NEGATIVE); UROBILINOGEN,URINE 0.2 EU/dL (0.2)
[2018-10-19 05:58] LABS: BACTERIA,URINE None seen /HPF (None Seen); HYALINE CASTS, URINE Few /LPF (None Seen); MUCUS,URINE Few /LPF (None Seen); RBC,URINE 0-2 /HPF (0-2); SQUAMOUS EPITHELIAL CELL,UR Few /HPF (None Seen); WBC,URINE 0-2 /HPF (0-3)
--- NOTE | 2018-10-19 06:36 | NUR ---
PT ACCEPTED TO [facility]. INTAKE WILL CALL BACK WITH AMBULANCE ETA AND NUMBER FOR REPORT.
--- NOTE | 2018-10-19 06:58 | NUR ---
PT ENDORSED TO LUCAS DENNIS FOR JADEN. AWAITING ACCEPTING FACILITY CALL BACK
--- NOTE | 2018-10-19 07:10 | NUR ---
PT AWAKE IN BED WITH GOWN WAITING PLACEMENT FOR SI VITAL SIGNS TAKEN PT COOPERATIVE AND REQUESTED BREAKFAST WHICH WAS PROVIDED. WILL CONTINUE TO MONITOR
--- NOTE | 2018-10-19 09:37 | NUR ---
PT COOPERATIVE RESTING QUIETLY REFUSES TO PUT GOWN ON COVERED WITH BLANKET GIVEN MEAL TRAY
--- NOTE | 2018-10-19 10:47 | NUR ---
CALLED INTAKE AND SPOKE TO BEE AND PER INTAKE PT IS ACCEPTED TO [facility], ASK FOR ZELALEM FOR REPORT [phone].
--- NOTE | 2018-10-19 10:52 | NUR ---
CALLED JENNIE FOR TRANSPORTATION TRIP # [id number] ETA: 45 MINS
--- NOTE | 2018-10-19 11:00 | NUR ---
RN REPORT GIVEN TO WENDIE FROM UNIT C1 ETA FOR GUN STOCKER 45 MINUTES
--- NOTE | 2018-10-19 11:14 | NUR ---
PT DOES NOT WANT TO GO TO [facility] RANJITH RAMIREZ AWARE AND WILL EVALUATE
--- NOTE | 2018-10-19 11:20 | NUR ---
CALLED JONATHON FOR PSYCH EVAL AND LEFT A MESSAGE.
--- NOTE | 2018-10-19 11:21 | NUR ---
JONATHON CALLED BACK AND WILL BE HERE IN AN HOUR.
--- NOTE | 2018-10-19 11:22 | NUR ---
[facility] TEAM CALLED ETA 60 MINUTES
--- NOTE | 2018-10-19 11:36 | NUR ---
PT DISCHARGED TO HOME AWARE REFUSED TO SIGN ACI PT FULLY CLOTH WALKING WITH STEADY GAIT.
[2018-10-19 11:37] VITALS: BP 111/67
== END 2018-10-19 11:37 | disposition home or self-care (01) ==
LOC: ER 03:29
DX: R45.851 Suicidal ideations (principal); R44.0 Auditory hallucinations; F15.10 Other stimulant abuse, uncomplicated; Z79.899 Other long term (current) drug therapy
CPT/HCPCS: 36415; 80048; 80076; 80305; 80307; 80329; 81001; 85025; 99284; G0480; 81000-TC

== ENCOUNTER 2019-01-03 15:55 | Emergency (ER) | payer MEDICAID ==
[~2019-01-03] VITALS: Ht 152.4 cm; Wt 83.0 kg
[2019-01-03 16:03] VITALS: BP 171/79
--- NOTE | 2019-01-03 17:14 | NUR ---
Patient discharged to home in stable condition. Written and verbal after care instructions given. Patient verbalizes understanding of instruction.
== END 2019-01-03 17:16 | disposition home or self-care (01) ==
LOC: ER 15:58
DX: Z76.0 Encounter for issue of repeat prescription (principal); F32.9 Major depressive disorder, single episode, unspecified; F20.9 Schizophrenia, unspecified; Z79.899 Other long term (current) drug therapy

== ENCOUNTER 2019-01-05 18:59 | Emergency (ER) | payer MEDICAID ==
[~2019-01-05] VITALS: Ht 167.6 cm; Wt 86.2 kg
[2019-01-05 19:11] VITALS: BP 143/91
[2019-01-05] MEDS ORDERED: OLANZAPINE 5 MG TABLET PO ONE (19:30)
[2019-01-05] MEDS ORDERED: OLANZAPINE 5 MG TABLET ONE (19:34)
== END 2019-01-05 19:41 | disposition home or self-care (01) ==
LOC: ER 19:05
DX: I10 Essential (primary) hypertension (principal); F32.9 Major depressive disorder, single episode, unspecified; F20.9 Schizophrenia, unspecified; F10.10 Alcohol abuse, uncomplicated; Y90.9 Presence of alcohol in blood, level not specified; Z76.0 Encounter for issue of repeat prescription

== ENCOUNTER 2019-01-14 23:47 | Emergency (ER) | payer MEDICAID | END 2019-01-15 00:03 | disposition home or self-care (01) | LOC: ER 23:47 | DX: Z00.00 Encounter for general adult medical examination without abnormal findings (principal); F29 Unspecified psychosis not due to a substance or known physiological condition; F20.9 Schizophrenia, unspecified; F30.9 Manic episode, unspecified; F10.10 Alcohol abuse, uncomplicated; Y90.9 Presence of alcohol in blood, level not specified ==

== ENCOUNTER 2019-01-15 14:49 | Emergency (ER) | payer MEDICAID ==
[~2019-01-15] VITALS: Ht 167.6 cm; Wt 86.2 kg
--- NOTE | 2019-01-15 15:00 | NUR ---
PT REQUEST FOR LAB TEST "I JUST WANT A URINE TEST". PT IS LABILE, PACING.
[2019-01-15 15:34] LABS: APPEARANCE,URINE Clear (CLEAR); BILIRUBIN,URINE Negative (NEGATIVE); BLOOD, URINE Negative Ery/uL (NEGATIVE); COLOR,URINE Yellow (YELLOW); KETONES,URINE Negative (NEGATIVE); LEUKOCYTE ESTERASE ,URINE Negative (NEGATIVE); NITRITE, URINE Negative (NEGATIVE); PH,URINE 5.5 (5.0-8.0); PROTEIN,URINE Trace mg/dl (NEGATIVE); UGLUCOSE Negative (NEGATIVE); UROBILINOGEN,URINE 0.2 EU/dL (0.2)
[2019-01-15 15:49] LABS: BASOPHILS # (AUTO) 0.1 /CMM (0.0-0.2); BASOPHILS % (AUTO) 0.9 % (0.0-2.0); EOSINOPHILS % (AUTO) 0.4 % (0.0-6.0); HEMATOCRIT 44 % (39-51); HEMOGLOBIN 14.5 g/dL (13.5-17.5); LYMPHOCYTES # (AUTO) 2.2 /CMM (0.8-4.8); LYMPHOCYTES % (AUTO) 17.7 % (20.0-44.0); MEAN CORPUSCULAR HGB CONC 33 g/dl (31.0-36.0); MEAN CORPUSCULAR VOLUME 91 fL (80-96); MONOCYTES # (AUTO) 1.7 /CMM (0.1-1.30); MONOCYTES % (AUTO) 13.7 % (2.0-12.0); NEUTROPHILS # (AUTO) 8.4 /CMM (1.8-8.9); NEUTROPHILS % (AUTO) 67.3 % (43.0-81.0); PLATELET COUNT (AUTO) 327 /CMM (150-450); RED BLOOD CELL COUNT(AUTO) 4.84 MIL/uL (4.5-6.0); WHITE BLOOD COUNT (AUTO) 12.5 K/uL (4.3-11.0)
[2019-01-15 16:06] LABS: BACTERIA,URINE None seen /HPF (None Seen); RBC,URINE 0-2 /HPF (0-2); SQUAMOUS EPITHELIAL CELL,UR Few /HPF (None Seen); WBC,URINE 0-2 /HPF (0-3)
[2019-01-15 16:19] LABS: CALCIUM, SERUM 9.6 mg/dL (8.5-10.1); CARBON DIOXIDE 30 mmol/L (21-32); CHLORIDE 101 mmol/L (98-107); CREATININE 1.3 mg/dL (0.6-1.3); GLUCOSE 89 mg/dL (74-106); POTASSIUM 4.4 mmol/L (3.5-5.1); SODIUM SERUM 140 mmol/L (136-145); UREA NITROGEN, BLOOD 22 mg/dL (7-18)
[2019-01-15 16:25] LABS: ALANINE AMINOTRANSFERASE 51 U/L (12-78); ALBUMIN 4.4 g/dL (3.4-5.0); ALKALINE PHOSPHATASE 72 U/L (46-116); ASPARTATE AMINOTRANSFERASE 85 U/L (15-37); BILIRUBIN,DIRECT 0.1 mg/dL (0.0-0.2); BILIRUBIN,TOTAL 0.5 mg/dL (0.2-1.0); TOTAL PROTEIN, SERUM 8.7 g/dL (6.4-8.2)
[2019-01-15 16:29] LABS: ACETAMINOPHEN 0 ug/ml (10-30); ALCOHOL, BLOOD < 3 mg/dL (0-0); SALICYLATE 1.7 mg/dL (2.8-20.0)
[2019-01-15] MEDS ORDERED: OLANZAPINE 5 MG TABLET PO ONE (17:00)
[2019-01-15] MEDS ORDERED: OLANZAPINE 5 MG TABLET ONE (17:00)
--- NOTE | 2019-01-15 17:10 | NUR ---
SAP BW BI DEVELOPER SG ZAVALA ETA 1HR
[2019-01-15 20:35] VITALS: BP 137/73
--- NOTE | 2019-01-15 21:50 | NUR ---
PER BROADBAND TECHNICIAN SG AWAITING A BED AT [facility]
--- NOTE | 2019-01-15 21:57 | NUR ---
TRANSFER INFO PT ACCEPTED AT [facility] ACCEPTED BY DR FANG AND DR VILLEGAS, RN FOR REPORT [phone] CHUY RUBIO ETA INFO TO FOLLOW
--- NOTE | 2019-01-15 22:08 | NUR ---
REPORT GIVEN TO ALYSHA ZAVALA.
--- NOTE | 2019-01-15 22:09 | NUR ---
JENNIFER ETA [phone] TRIP #[id number]
--- NOTE | 2019-01-15 22:35 | NUR ---
REPORT GIVEN TO EMT TRANSPORT.
== END 2019-01-15 23:22 ==
LOC: ER 14:54
DX: R45.851 Suicidal ideations (principal); F15.10 Other stimulant abuse, uncomplicated; Z79.899 Other long term (current) drug therapy
CPT/HCPCS: 36415; 80048; 80076; 80305; 80307; 80329; 81001; 85025; 99285; G0480; 81000-TC

== ENCOUNTER 2019-01-24 18:13 | Emergency (ER) | payer MEDICAID, OTHER ==
[~2019-01-24] VITALS: Ht 167.6 cm; Wt 86.2 kg
[2019-01-24 18:55] VITALS: BP 144/95
== END 2019-01-24 18:57 | disposition home or self-care (01) ==
LOC: ER 18:13
DX: F15.10 Other stimulant abuse, uncomplicated (principal); F20.9 Schizophrenia, unspecified; F30.9 Manic episode, unspecified; F10.10 Alcohol abuse, uncomplicated; R00.0 Tachycardia, unspecified; Y90.9 Presence of alcohol in blood, level not specified

== ENCOUNTER 2019-07-28 15:11 | Emergency (ER) | payer MEDICAID, OTHER ==
[~2019-07-28] VITALS: Ht 167.6 cm; Wt 83.9 kg
--- NOTE | 2019-07-28 15:26 | NUR ---
BIBS TO ER BED 12. AAOX4. NOT IN RESP DISTRESS, BREATHING EVEN ADN UNLABORED. AMBULATORY. CAME IN FOR SUICIDAL IDEATION - PLANS TO CUT HIMSELF. DENIES HI. PT IS POSITIVE FOR AUDITORY HALLUCINATIONS - VOICES TELLING HIM TO COMMIT SUICIDE. PT IS STRIPPED OF BELONGINGS AND PLACED ON GOWN W/ BELONGINGS PLACED IN LOCKER. 1:1 SITTER AT BEDSIDE. AWAITING MD FOR EVAL. URINE COLLECTED.
[2019-07-28 15:45] LABS: APPEARANCE,URINE Clear (CLEAR); BILIRUBIN,URINE Negative (NEGATIVE); BLOOD, URINE Negative Ery/uL (NEGATIVE); COLOR,URINE Yellow (YELLOW); KETONES,URINE Negative (NEGATIVE); LEUKOCYTE ESTERASE ,URINE Negative (NEGATIVE); NITRITE, URINE Negative (NEGATIVE); PH,URINE 5.5 (5.0-8.0); PROTEIN,URINE Negative (NEGATIVE); UGLUCOSE Negative (NEGATIVE); UROBILINOGEN,URINE 0.2 EU/dL (0.2)
[2019-07-28 15:54] LABS: BASOPHILS % (AUTO) 0.4 % (0.0-2.0); EOSINOPHILS % (AUTO) 1.2 % (0.0-6.0); HEMATOCRIT 40 % (39-51); HEMOGLOBIN 13.3 g/dL (13.5-17.5); LYMPHOCYTES # (AUTO) 2.4 /CMM (0.8-4.8); LYMPHOCYTES % (AUTO) 23.1 % (20.0-44.0); MEAN CORPUSCULAR HGB CONC 33 g/dl (31.0-36.0); MEAN CORPUSCULAR VOLUME 90 fL (80-96); MONOCYTES % (AUTO) 9.9 % (2.0-12.0); NEUTROPHILS # (AUTO) 6.7 /CMM (1.8-8.9); NEUTROPHILS % (AUTO) 65.4 % (43.0-81.0); PLATELET COUNT (AUTO) 258 /CMM (150-450); RED BLOOD CELL COUNT(AUTO) 4.43 MIL/uL (4.5-6.0); WHITE BLOOD COUNT (AUTO) 10.2 K/uL (4.3-11.0)
[2019-07-28 16:02] LABS: CALCIUM, SERUM 7.7 mg/dL (8.5-10.1); CARBON DIOXIDE 29 mmol/L (21-32); CHLORIDE 98 mmol/L (98-107); CREATININE 1.1 mg/dL (0.6-1.3); GLUCOSE 108 mg/dL (74-106); POTASSIUM 3.2 mmol/L (3.5-5.1); SODIUM SERUM 134 mmol/L (136-145); UREA NITROGEN, BLOOD 22 mg/dL (7-18)
[2019-07-28 16:10] LABS: ALANINE AMINOTRANSFERASE 40 U/L (12-78); ALBUMIN 3.6 g/dL (3.4-5.0); ALCOHOL, BLOOD < 3 mg/dL (0-0); ALKALINE PHOSPHATASE 80 U/L (46-116); ASPARTATE AMINOTRANSFERASE 41 U/L (15-37); BILIRUBIN,DIRECT 0.1 mg/dL (0.0-0.2); BILIRUBIN,TOTAL 0.4 mg/dL (0.2-1.0); SALICYLATE < 2.8 mg/dL (2.8-20.0)
[2019-07-28] MEDS ORDERED: OLANZAPINE 5 MG TABLET ONE (17:33)
--- NOTE | 2019-07-28 17:35 | NUR ---
PT NOTED TALKING AND LAUGHING BY HIMSELF. PT IS RESTLESS IN BED. MD MADE AWARE. ORDER RECEIVED TO GIVE ZYPREXA 10MG PO X 1 DOSE. NOTED AND CARRIED OUT
[2019-07-28] MEDS ORDERED: OLANZAPINE 5 MG TABLET PO ONE (18:00)
--- NOTE | 2019-07-28 18:24 | NUR ---
SPOKE TO GRETCHEN AT COUNTS INCLUDE 234 BEDS AT THE [facility] FOR UPDATE. PT IS SCHEDULED TO GO TO [facility] SINCE PT IS A REGULAR AT [facility]. KIMBERLEE ESCOBAR AT [facility] IS REVIEWING CLINICALS BEFORE ACCEPTING. WILL CALL BACK ONCE UPDATE IS GIVEN.
--- NOTE | 2019-07-29 00:56 | NUR ---
PT IN BED SLEEPING COMFORTABLY. NAD NOTED. BREATHING EVEN AND UNLABPRED.
--- NOTE | 2019-07-29 01:12 | NUR ---
RECEIVED CALL FROM [facility] KIMBERLEE SUP. SAYS PT IS ACCEPTED AND WE WILL RECEIVE CALL BACK FROM INTAKE.
--- NOTE | 2019-07-29 01:44 | NUR ---
PT ACCEPTED AT [facility] UNDER DR. YOST AND DR. MIKE.
--- NOTE | 2019-07-29 01:51 | NUR ---
NEW NUMBER FOR REPORT NIT 1
--- NOTE | 2019-07-29 02:12 | NUR ---
CALLED [facility] TRANSPORT [facility]. WILL RECEIVE CALL BACK FOR ETA. [phone]
--- NOTE | 2019-07-29 02:52 | NUR ---
[facility] [phone]
[2019-07-29 02:53] VITALS: BP 124/86
--- NOTE | 2019-07-29 02:57 | NUR ---
REPORT GIVEN TO [facility]
[2019-07-29] MEDS ORDERED: POTASSIUM CHLORIDE 20 MEQ TAB.PRT.SR PO ONE ×2 (03:00)
--- NOTE | 2019-07-29 03:28 | NUR ---
REPORT GIVEN TO ANDRÉS business systems technician
--- NOTE | 2019-07-29 03:31 | NUR ---
PT WAS PICKED UP BY [facility] recruitment specialist AND WAS TRANSFERRED TO [facility] IN STABLE CONDITION.
== END 2019-07-29 03:33 ==
LOC: ER 15:15
DX: F32.9 Major depressive disorder, single episode, unspecified (principal); F15.10 Other stimulant abuse, uncomplicated; F25.9 Schizoaffective disorder, unspecified; R45.851 Suicidal ideations
CPT/HCPCS: 36415; 80048; 80076; 80305; 80307; 80329; 81001; 85025; 99285; G0480; 81000-TC

== ENCOUNTER → 2020-11-02 | Emergency (ER) | payer MEDICAID ==
[~2020-11-02] VITALS: Ht 167.6 cm; Wt 95.3 kg
[~2020-11-02] MED LIST changes: +VALA500T PO
[2020-11-02 12:14] VITALS: BP 146/113
--- NOTE | 2020-11-02 12:34 | NUR ---
Patient discharged to home in stable condition. Written and verbal after care instructions given. Patient verbalizes understanding of instruction. Pt ambulatory with a steady gait
== END | disposition home or self-care (01) ==
LOC: ER 12:13
DX: B00.9 Herpesviral infection, unspecified (principal); F20.9 Schizophrenia, unspecified; Z59.0 Homelessness; E11.9 Type 2 diabetes mellitus without complications; Z79.899 Other long term (current) drug therapy
CPT/HCPCS: 82962-TC

== ENCOUNTER 2020-12-16 17:07 | Inpatient (IN) | payer MEDICAID ==
[~2020-12-16] VITALS: Ht 167.6 cm; Wt 99.8 kg
--- NOTE | 2020-12-16 17:07 | NUR ---
PT DAI 86 FROM THE BUS STOP C/O SI "I WANT TO CUT MY WRIST" PT IS AAOX4, NOT IN RESPIRATORY DISTRESS, HOOKED TO SEO MARKETING SPECIALIST, KEPT RESTED AND COMFORTABLE. SITTER AT BEDSIDE. WILL CONTINUE TO MONITOR.
--- NOTE | 2020-12-16 17:11 | NUR ---
URINE SPECIMEN COLLECTED AND SENT TO LAB.
[2020-12-16 17:36] LABS: BASOPHILS # (AUTO) 0.1 K/uL (0.0-0.2); BASOPHILS % (AUTO) 0.4 % (0.0-2.0); EOSINOPHILS % (AUTO) 0.1 % (0.0-6.0); HEMATOCRIT 53 % (39-51); HEMOGLOBIN 17.3 g/dL (13.5-17.5); LYMPHOCYTES # (AUTO) 2.5 K/uL (0.8-4.8); LYMPHOCYTES % (AUTO) 10.1 % (20.0-44.0); MEAN CORPUSCULAR HGB CONC 33 g/dl (31.0-36.0); MEAN CORPUSCULAR VOLUME 89 fL (80-96); MONOCYTES # (AUTO) 1.3 K/uL (0.1-1.30); MONOCYTES % (AUTO) 5.1 % (2.0-12.0); NEUTROPHILS # (AUTO) 20.5 K/uL (1.8-8.9); NEUTROPHILS % (AUTO) 84.3 % (43.0-81.0); PLATELET COUNT (AUTO) 372 K/uL (150-450); RED BLOOD CELL COUNT(AUTO) 6.03 MIL/uL (4.5-6.0); WHITE BLOOD COUNT (AUTO) 24.4 K/uL (4.3-11.0)
[2020-12-16 17:42] LABS: BILIRUBIN,URINE Negative (NEGATIVE); COLOR,URINE YELLOW (YELLOW); LEUKOCYTE ESTERASE ,URINE Negative (NEGATIVE); NITRITE, URINE Negative (NEGATIVE); PH,URINE 5.5 (5.0-8.0); PROTEIN,URINE 100 mg/dl (NEGATIVE); UGLUCOSE Negative (NEGATIVE); UROBILINOGEN,URINE 0.2 EU/dL (0.2)
[2020-12-16 17:45] LABS: BACTERIA,URINE Rare /HPF (None Seen); RBC,URINE NONE SEEN /HPF (0-2); SQUAMOUS EPITHELIAL CELL,UR Few /HPF (None Seen); WBC,URINE NONE SEEN /HPF (0-3)
[2020-12-16 17:58] LABS: ALANINE AMINOTRANSFERASE 57 U/L (12-78); ALBUMIN 4.8 g/dL (3.4-5.0); ALCOHOL, BLOOD < 3 mg/dL (0-0); ALKALINE PHOSPHATASE 114 U/L (46-116); ASPARTATE AMINOTRANSFERASE 35 U/L (15-37); BILIRUBIN,DIRECT 0.1 mg/dL (0.0-0.2); BILIRUBIN,TOTAL 0.4 mg/dL (0.2-1.0); CALCIUM, SERUM 9.6 mg/dL (8.5-10.1); CARBON DIOXIDE 23 mmol/L (21-32); CHLORIDE 101 mmol/L (98-107); CREATININE 1.7 mg/dL (0.6-1.3); GLUCOSE 138 mg/dL (74-106); POTASSIUM 4.7 mmol/L (3.5-5.1); SODIUM SERUM 141 mmol/L (136-145); TOTAL PROTEIN, SERUM 9.8 g/dL (6.4-8.2); UREA NITROGEN, BLOOD 15 mg/dL (7-18)
[2020-12-16 17:59] LABS: ACETAMINOPHEN < 2 ug/ml (10-30)
[2020-12-16] MEDS ORDERED: LORAZEPAM INJ 2 MG/ML VIAL IV ONE (18:00)
[2020-12-16] MEDS ORDERED: IV NS 0.9% 1,000 ML BAG IV ONE (18:00)
[2020-12-16] MEDS ORDERED: LORAZEPAM INJ 2 MG/ML VIAL ONE (18:57)
[2020-12-16] MEDS ORDERED: VANCOMYCIN 1 GM in IV D5W 250 ML IV ONE (19:00)
[2020-12-16] MEDS ORDERED: CEFEPIME 1 GM in IV D5W 50 ML IV ONE (19:00)
--- NOTE | 2020-12-16 19:07 | NUR ---
MOVE SHEET SUBMITTED.
--- NOTE | 2020-12-16 19:09 | NUR ---
COVID SWAB DONE AND SENT TO LAB
--- NOTE | 2020-12-16 19:39 | NUR ---
RECIEVED REPORT FROM LUCAS SINGLETON
--- NOTE | 2020-12-16 19:46 | NUR ---
COVID SWAB DONE AND SENT TO LAB
[2020-12-16] MEDS ORDERED: hydrALAZINE HCL IV 20 MG VIAL IV PRN (21:00)
[2020-12-16] MEDS ORDERED: ONDANSETRON HCL/PF 4 MG/2 ML VIAL IVP PRN (21:00)
[2020-12-16] MEDS ORDERED: MORPHINE SULFATE INJ 2 MG/ML DISP.SYRIN IV PRN (21:00)
[2020-12-16] MEDS ORDERED: LABETALOL 20 MG/4 ML VIAL IV PRN (21:00)
[2020-12-16] MEDS ORDERED: ACETAMINOPHEN 325 MG TABLET PO PRN (21:00)
[2020-12-16] MEDS: TRAZODONE 50 MG TABLET PO SCH (22:00)
[2020-12-16] MEDS ORDERED: TRAZODONE 50 MG TABLET ONE (23:49)
[2020-12-17] MEDS ORDERED: LABETALOL HCL IV 100MG VIAL ONE (01:13)
[2020-12-17 04:35] LABS: BASOPHILS # (AUTO) 0.1 K/uL (0.0-0.2); BASOPHILS % (AUTO) 0.4 % (0.0-2.0); EOSINOPHILS % (AUTO) 1.2 % (0.0-6.0); HEMATOCRIT 44 % (39-51); HEMOGLOBIN 14.4 g/dL (13.5-17.5); LYMPHOCYTES # (AUTO) 2.8 K/uL (0.8-4.8); LYMPHOCYTES % (AUTO) 16.3 % (20.0-44.0); MEAN CORPUSCULAR HGB CONC 33 g/dl (31.0-36.0); MEAN CORPUSCULAR VOLUME 88 fL (80-96); MONOCYTES # (AUTO) 1.4 K/uL (0.1-1.30); MONOCYTES % (AUTO) 8.2 % (2.0-12.0); NEUTROPHILS # (AUTO) 12.6 K/uL (1.8-8.9); NEUTROPHILS % (AUTO) 73.9 % (43.0-81.0); PLATELET COUNT (AUTO) 267 K/uL (150-450); WHITE BLOOD COUNT (AUTO) 17.1 K/uL (4.3-11.0)
[2020-12-17 04:49] LABS: ALBUMIN 3.8 g/dL (3.4-5.0); BILIRUBIN,TOTAL 0.7 mg/dL (0.2-1.0); CALCIUM, SERUM 8.8 mg/dL (8.5-10.1); CREATININE 1.2 mg/dL (0.6-1.3); MAGNESIUM 2.4 mg/dL (1.8-2.4); PHOSPHORUS 3.9 mg/dL (2.5-4.9); POTASSIUM 4.1 mmol/L (3.5-5.1); TOTAL PROTEIN, SERUM 7.7 g/dL (6.4-8.2)
--- NOTE | 2020-12-17 06:09 | NUR ---
117-1 REPORT AFTER CHANGE OF SHIFT
--- NOTE | 2020-12-17 07:57 | NUR ---
wheeled patient in no distress going to [facility] bed 117-T, accompanied by RN and emt.
[2020-12-17 09:00] VITALS: BP_SYST 108; BP_SYST 131; BP_DIAS 39; BP_DIAS 95
[2020-12-17] MEDS: ESCITALOPRAM OXALATE (10 MG) 10 MG TABLET PO SCH (09:07)
[2020-12-17] MEDS: IV NS 0.9% 1,000 ML IV PRN ×2 (09:27→17:41)
--- NOTE | 2020-12-17 09:30 | NUR ---
RN Notes PT RECEIVED FROM ER. PT A/OX3 WITH RAPID SPEECH. PT ADMITS DOING METHAMPHETAMINE. PT HAS NO WOUNDS. ON RA, AND VS STABLE. PT WILL BE MONITORED FROM A SITTER. PATIENT AWAITS A PSYCH CONSULT. PT RUNNING ON 75ML/HR NS.
[2020-12-17] MEDS: VALACYCLOVIR HCL 500 MG TABLET PO SCH ×3 (10:05→16:16)
[2020-12-17 13:00] VITALS: BP 139/103
[2020-12-17 15:48] LABS: BASOPHILS # (AUTO) 0.1 K/uL (0.0-0.2); BASOPHILS % (AUTO) 0.7 % (0.0-2.0); EOSINOPHILS % (AUTO) 1.7 % (0.0-6.0); HEMATOCRIT 43 % (39-51); LYMPHOCYTES # (AUTO) 2.4 K/uL (0.8-4.8); LYMPHOCYTES % (AUTO) 19.4 % (20.0-44.0); MEAN CORPUSCULAR HGB CONC 33 g/dl (31.0-36.0); MEAN CORPUSCULAR VOLUME 88 fL (80-96); MONOCYTES % (AUTO) 8.2 % (2.0-12.0); NEUTROPHILS # (AUTO) 8.7 K/uL (1.8-8.9); PLATELET COUNT (AUTO) 245 K/uL (150-450); RED BLOOD CELL COUNT(AUTO) 4.87 MIL/uL (4.5-6.0); WHITE BLOOD COUNT (AUTO) 12.4 K/uL (4.3-11.0)
--- NOTE | 2020-12-17 16:35 | NUR ---
Clinical Social work Note Discussed case with Dr Bruce who made medication changes after consultation today. Per Dr Bruce patient is not endorsing any suicidal ideation or plan. He may have stated this while intoxicated on methamphetamines in the ED.Per Dr Bruce, patient is not a candidate for 5150. Patient told Dr Bruce he wants to go home after he is medically stable and that will follow up with Dr Greer his outpatient psychiatrist. Patient has a sitter which does not appear justified in view of denial of suicidality. Plan Discharge home once medically stable and follow up with outpatient psychiatrist. AT this point it is not clear whether or not pt is homeless. We will determine this when he is medically stable.
--- NOTE | 2020-12-17 16:57 | NUR ---
RN NOTES PATIENT SEEN BY DR. WOODS EARLIER AND SAID WILL PT PATIENT ON HOLD. RECEIVED A CALL FROM [facility] AND SAID THAT PATIENT CAN NOT BE ADMITTED TO [facility] DUE TO AGE 45 YRS OLD. STACY CARRANZA CALLED AND SAID TO VERIFY WITH DR. WOODS IF PT IS ON HOLD, AND IF SO, COULD HE HAVE IT BROKEN SO PATIENT COULD BE TRANSFERRED. HOWEVER PATIENT NEEDS A DC ORDER FIRST. DR. WOODS 'S PHONE NUMBER GIVEN TO SOON CHARGE NURSE AND SHE CALLED DR. WOODS AND LEFT A MESSAGE. CLAY ARTISAN INFORMED AND THAT PER [facility] INTAKE, CLAY ARTISAN HAS TO ARRANGE WHERE PATIENT COULD BE TRANSFERRED. ANOTHER CALL FROM [facility], SHE SAID SHE WILL INFORM DR. WOODS TO PUT IN HIS NOTE AND PLAN
[2020-12-17 17:00] VITALS: BP 155/92
--- NOTE | 2020-12-17 19:30 | NUR ---
MS RN OPENING NOTE RECEIVED PT AWAKE IN BED. A/O X3. PT IS STABLE ON ROOM AIR. NO SOB OR S/S OF RESPIRATORY DISTRESS NOTED. PT HAS NO C/O PAIN OR DISCOMFORT AT THIS TIME. IV ACCESS IN LEFT HAND #20 INFUSING NS @ 150 ML/HR, INTACT AND PATENT. PT NOTED WITH SITTER AT BEDSIDE FOR HX OF SUICIDAL IDEATION. SAFETY PRECAUTIONS MAINTAINED. BED IN LOWEST LOCKED POSITION, HOB ELEVATED, SIDE RAILS UP X2. CALL LIGHT AND TABLE WITHIN REACH. WILL CONTINUE WITH PLAN OF CARE.
[2020-12-17 20:00] VITALS: BP 165/109
[2020-12-17] MEDS: TRAZODONE 50 MG TABLET PO SCH (21:10)
[2020-12-17] MEDS ORDERED: TRAZODONE 50 MG TABLET PO SCH (22:00)
[2020-12-17] MEDS ORDERED: OLANZAPINE ZYDIS 5 MG TAB.RAPDIS PO SCH (22:00)
--- NOTE | 2020-12-18 00:52 | NUR ---
MS RN NOTES SPOKE TO DR OHARA PTS REFUSING TELE MONITOR WITH ORDER NOLBERTO TO TRANSFER TO [facility] STAT[facility] PTS IS STABLE AT THIS TIME NO JADEN NOTED . ORDER NOTED AND CARRIED OUT.
[2020-12-18 04:00] VITALS: BP 137/78
--- NOTE | 2020-12-18 06:32 | NUR ---
MS RN CLOSING NOTE PT IS AWAKE IN BED. A/O X3. PT IS STABLE ON ROOM AIR. NO SOB OR S/S OF RESPIRATORY DISTRESS NOTED. PT HAS NO C/O PAIN OR DISCOMFORT AT THIS TIME. IV ACCESS IN LEFT HAND #20 INFUSING NS @ 150 ML/HR, INTACT AND PATENT. PT NOTED WITH SITTER AT BEDSIDE FOR HX OF SUICIDAL IDEATION. ALL NEEDS HAVE BEEN MET. SAFETY PRECAUTIONS MAINTAINED AT ALL TIMES. BED IN LOWEST LOCKED POSITION, HOB ELEVATED, SIDE RAILS UP X2. CALL LIGHT AND TABLE WITHIN REACH. WILL ENDORSE TO ONCOMING NURSE FOR JADEN.
[2020-12-18 07:20] LABS: BASOPHILS # (AUTO) 0.1 K/uL (0.0-0.2); BASOPHILS % (AUTO) 0.4 % (0.0-2.0); HEMATOCRIT 44 % (39-51); HEMOGLOBIN 14.6 g/dL (13.5-17.5); LYMPHOCYTES # (AUTO) 2.1 K/uL (0.8-4.8); LYMPHOCYTES % (AUTO) 17.7 % (20.0-44.0); MEAN CORPUSCULAR HGB CONC 33 g/dl (31.0-36.0); MEAN CORPUSCULAR VOLUME 88 fL (80-96); MONOCYTES # (AUTO) 0.9 K/uL (0.1-1.30); MONOCYTES % (AUTO) 7.7 % (2.0-12.0); NEUTROPHILS # (AUTO) 8.7 K/uL (1.8-8.9); NEUTROPHILS % (AUTO) 73.2 % (43.0-81.0); PLATELET COUNT (AUTO) 251 K/uL (150-450); RED BLOOD CELL COUNT(AUTO) 5.02 MIL/uL (4.5-6.0); WHITE BLOOD COUNT (AUTO) 11.9 K/uL (4.3-11.0)
[2020-12-18 07:33] LABS: CALCIUM, SERUM 8.2 mg/dL (8.5-10.1); MAGNESIUM 2.4 mg/dL (1.8-2.4); POTASSIUM 3.7 mmol/L (3.5-5.1)
--- NOTE | 2020-12-18 07:45 | NUR ---
MS RN OPENING NOTE PT IS AWAKE SITTING UP ON BED TALKING TO SITTER AT BEDSIDE. A/O X 3. PT TOLERATING WELL ON ROOM AIR. NO SOB. BREATHING IS EVEN AND UNLABORED. NO RESPIRATORY DISTRESS NOTED. IV ACCESS LHAND#18 PATENT AND INTACT RUNNING NS@150MLS/HR. SAFETY MEASURES IN PLACE WITH BED LOCKED AT LOW POSITION AND SIDE RAILS UP X 2. WILL MONITOR PATIENT THROUGHOUT SHIFT.
[2020-12-18] MEDS: ESCITALOPRAM OXALATE (10 MG) 10 MG TABLET PO SCH (09:22)
[2020-12-18] MEDS: VALACYCLOVIR HCL 500 MG TABLET PO SCH ×2 (09:22→13:00)
[2020-12-18 12:00] VITALS: BP 111/78
[2020-12-18] MEDS ORDERED: TRAZ-252 PO (12:09)
[2020-12-18] MEDS ORDERED: OLAN5TAB6 PO (12:09)
[2020-12-18] MEDS ORDERED: ESCI10TA PO (12:09)
--- NOTE | 2020-12-18 13:50 | NUR ---
MS PROFESSOR OF COMMUNICATION NOTE PATIENT WAS DISCHARGED WITH STABLE VITALS. DISCHARGE SUMMARY REVIEWED WITH PATIENT AND SIGNED; VERBALIZED UNDERSTANDING, ALL QUESTIONS ANSWERED. IV ACCESS AND ID BAND REMOVED. ALL BELONGINGS RETURNED TO PATIENT. PATIENT WAS ESCORTED OUT OF UNIT WITH STEFFANIE ROSS.
== END 2020-12-18 13:36 | disposition home or self-care (01) | DRG 720 ==
LOC: ER 17:09 → TRANSITION 23:23 → TELE1 12-17 07:28 → MEDSG1 12-17 17:16
PROVIDERS: ADMIT Internal Medicine; ATTEND Nurse Practitioner Family
DX: A41.9 Sepsis, unspecified organism (principal); N17.0 Acute kidney failure with tubular necrosis; E87.2 Acidosis; R45.851 Suicidal ideations; E11.9 Type 2 diabetes mellitus without complications; F15.10 Other stimulant abuse, uncomplicated; I10 Essential (primary) hypertension; Z20.822 Contact with and (suspected) exposure to COVID-19; F20.9 Schizophrenia, unspecified; Z79.899 Other long term (current) drug therapy
CPT/HCPCS: 36415; 71045-TC; 80048-TC; 80053-TC; 80076-TC; 81001; 83605-TC; 83735-TC; 84100-TC; 84484-TC; 85025-TC; 87040-TC; 87081-TC; C9803; G0378; G0480; J0692; J2060; J2270; J2405; J3370; J3490; J7030; J7060; U0003

== ENCOUNTER 2020-12-27 14:02 | Emergency (ER) | payer MEDICAID ==
[~2020-12-27] VITALS: Ht 167.6 cm; Wt 99.8 kg
[~2020-12-27 14:02] MED LIST changes: -BANOPHEN 50 MG; +ESCI10TA PO; -ESCITALOPRAM 20 MG; +OLAN5TAB6 PO; +TRAZ-252 PO; -TRAZODONE HCL 150 MG; -VALA500T PO
--- NOTE | 2020-12-27 14:08 | NUR ---
BIB RA 102 FROM [facility] VN,C/O CHEST PAIN X 2 HRS. RATES PAIN 5/10. IN ROOM AIR AND DENIES SOB. RESPIRATION REGULAR AND UNLABORED. ATTACHED TO THE MONITOR. WARM BLANKET PROVIDED FOR COMFORT. WILL CONTINUE TO MONITOR THE PATIENT.
[2020-12-27] MEDS ORDERED: IV NS 0.9% 1,000 ML BAG IV ONE (14:30)
[2020-12-27 15:30] LABS: BASOPHILS # (AUTO) 0.1 K/uL (0.0-0.2); BASOPHILS % (AUTO) 0.4 % (0.0-2.0); EOSINOPHILS % (AUTO) 0.2 % (0.0-6.0); HEMATOCRIT 49 % (39-51); HEMOGLOBIN 16.2 g/dL (13.5-17.5); LYMPHOCYTES # (AUTO) 2.6 K/uL (0.8-4.8); LYMPHOCYTES % (AUTO) 16.2 % (20.0-44.0); MEAN CORPUSCULAR HGB CONC 33 g/dl (31.0-36.0); MEAN CORPUSCULAR VOLUME 88 fL (80-96); MONOCYTES # (AUTO) 0.9 K/uL (0.1-1.30); MONOCYTES % (AUTO) 5.5 % (2.0-12.0); NEUTROPHILS # (AUTO) 12.4 K/uL (1.8-8.9); NEUTROPHILS % (AUTO) 77.7 % (43.0-81.0); WHITE BLOOD COUNT (AUTO) 15.9 K/uL (4.3-11.0)
[2020-12-27 16:00] LABS: PLATELET COUNT (AUTO) 255 K/uL (150-450)
[2020-12-27 16:01] LABS: CALCIUM, SERUM 8.9 mg/dL (8.5-10.1); CARBON DIOXIDE 27 mmol/L (21-32); CHLORIDE 100 mmol/L (98-107); CREATININE 1.2 mg/dL (0.6-1.3); GLUCOSE 149 mg/dL (74-106); POTASSIUM 4.9 mmol/L (3.5-5.1); SODIUM SERUM 137 mmol/L (136-145); UREA NITROGEN, BLOOD 14 mg/dL (7-18)
--- NOTE | 2020-12-27 19:30 | NUR ---
Report given to nurse Shaka
--- NOTE | 2020-12-27 19:38 | NUR ---
FACESHEET AND CLINICALS FAXED TO [facility].
--- NOTE | 2020-12-27 23:00 | NUR ---
PT PROVIDED WITH WARM BLANKETS FOR COMFORT.
[2020-12-27] MEDS ORDERED: OLANZAPINE 5 MG TABLET ONE (23:13)
[2020-12-27] MEDS ORDERED: OLANZAPINE 5 MG TABLET PO ONE (23:30)
--- NOTE | 2020-12-28 05:33 | NUR ---
Lesley ervin in ED - 12/28/20 at 0545 by GEETA Patient discharged to home in stable condition. Written and verbal after care instructions given. Patient verbalizes understanding of instruction.
[2020-12-28] MEDS ORDERED: LORAZEPAM 1 MG TABLET PO ONE (09:00)
[2020-12-28] MEDS ORDERED: LORAZEPAM 1 MG TABLET ONE (09:02)
[2020-12-28] MEDS ORDERED: OLANZAPINE 5 MG TABLET ONE (09:30)
[2020-12-28] MEDS ORDERED: OLANZAPINE 5 MG TABLET PO ONE (09:30)
[2020-12-28] MEDS ORDERED: QUETIAPINE FUMARATE 100 MG TABLET PO SCH (11:00)
--- NOTE | 2020-12-28 15:11 | NUR ---
Patient discharged to home in stable condition. Written and verbal after care instructions given. Patient verbalizes understanding of instruction. patient denies SI/HI.
[2020-12-28 15:13] VITALS: BP 135/88
== END 2020-12-28 05:34 | disposition home or self-care (01) ==
LOC: ER 14:10
DX: R00.2 Palpitations (principal); E11.9 Type 2 diabetes mellitus without complications; Z79.899 Other long term (current) drug therapy
CPT/HCPCS: 36415; 71045; 80048; 84484; 85025; 93005 ×2; 96360; 99285; J7030

== ENCOUNTER 2021-02-16 18:21 | Emergency (ER) | payer MEDICAID, OTHER ==
[~2021-02-16] VITALS: Ht 167.6 cm; Wt 99.8 kg
--- NOTE | 2021-02-16 20:07 | NUR ---
[employer]. TO ER BED 18. AAOX4. NOT IN RESP DISTRESS. AMBULATORY. BROUGHT IN FOR SUICIDAL IDEATION WITHOUT ANY SPECIFIC PLAN. PT IS PLACED ON HOLD BY [employer] FOR DTS. PT IS IN GOWN. WITH SITTER WITHIN SIGHT. WAS AT THE BEDSIDE FOR EVAL. ORDERS RECEIVED, NOTED AND CARRIED OUT. URINE COLLECTED AND SENT TO LAB
[2021-02-16 20:26] LABS: BASOPHILS % (AUTO) 0.4 % (0.0-2.0); EOSINOPHILS % (AUTO) 0.8 % (0.0-6.0); HEMATOCRIT 39 % (39-51); HEMOGLOBIN 12.8 g/dL (13.5-17.5); LYMPHOCYTES # (AUTO) 1.7 K/uL (0.8-4.8); LYMPHOCYTES % (AUTO) 15.8 % (20.0-44.0); MEAN CORPUSCULAR HGB CONC 33 g/dl (31.0-36.0); MEAN CORPUSCULAR VOLUME 91 fL (80-96); MONOCYTES % (AUTO) 8.8 % (2.0-12.0); NEUTROPHILS # (AUTO) 8.1 K/uL (1.8-8.9); NEUTROPHILS % (AUTO) 74.2 % (43.0-81.0); PLATELET COUNT (AUTO) 230 K/uL (150-450); RED BLOOD CELL COUNT(AUTO) 4.31 MIL/uL (4.5-6.0); WHITE BLOOD COUNT (AUTO) 10.9 K/uL (4.3-11.0)
[2021-02-16 20:39] LABS: ALANINE AMINOTRANSFERASE 75 U/L (12-78); ALBUMIN 3.5 g/dL (3.4-5.0); ALKALINE PHOSPHATASE 78 U/L (46-116); ASPARTATE AMINOTRANSFERASE 86 U/L (15-37); BILIRUBIN,DIRECT 0.1 mg/dL (0.0-0.2); BILIRUBIN,TOTAL 0.7 mg/dL (0.2-1.0); CALCIUM, SERUM 8.1 mg/dL (8.5-10.1); CARBON DIOXIDE 27 mmol/L (21-32); CHLORIDE 103 mmol/L (98-107); CREATININE 1.1 mg/dL (0.6-1.3); GLUCOSE 81 mg/dL (74-106); POTASSIUM 3.5 mmol/L (3.5-5.1); SODIUM SERUM 137 mmol/L (136-145); TOTAL PROTEIN, SERUM 7.6 g/dL (6.4-8.2); UREA NITROGEN, BLOOD 21 mg/dL (7-18)
[2021-02-16 20:40] LABS: ACETAMINOPHEN < 2 ug/ml (10-30); ALCOHOL, BLOOD < 3 mg/dL (0-0)
--- NOTE | 2021-02-16 21:01 | NUR ---
URINE SENT TO LAB
[2021-02-16 21:19] LABS: BILIRUBIN,URINE NEGATIVE (NEGATIVE); COLOR,URINE YELLOW (YELLOW); LEUKOCYTE ESTERASE ,URINE NEGATIVE (NEGATIVE); NITRITE, URINE NEGATIVE (NEGATIVE); PROTEIN,URINE NEGATIVE (NEGATIVE); UGLUCOSE NEGATIVE (NEGATIVE); UROBILINOGEN,URINE 0.2 EU/dL (0.2)
[2021-02-16 21:36] LABS: BACTERIA,URINE None seen /HPF (None Seen); SQUAMOUS EPITHELIAL CELL,UR Few /HPF (None Seen); WBC,URINE 0-2 /HPF (0-3)
--- NOTE | 2021-02-17 00:03 | NUR ---
covid swab sent to lab
--- NOTE | 2021-02-17 01:45 | NUR ---
rPatient is resting comfortably in bed with eyes closed. Easily aroused. VSS
--- NOTE | 2021-02-17 02:15 | NUR ---
pt watching tv quietly, attached to monitor, vss
--- NOTE | 2021-02-17 03:40 | NUR ---
liz izaguirre at bedside for eval
--- NOTE | 2021-02-17 03:46 | NUR ---
Patient is resting comfortably in bed with eyes closed. Easily aroused. VSS
--- NOTE | 2021-02-17 04:38 | NUR ---
pt sleeping, easily arousable, vss
[2021-02-17] MEDS ORDERED: OLANZAPINE 10 MG VIAL IM ONE ×2 (05:00→05:10)
--- NOTE | 2021-02-17 12:53 | NUR ---
DORIAN fax clinical reports to [facility] [fax number: [phone], tele: [phone]], and [facility] [fax: [phone], tele: [phone]]. Still waiting for a response from [facility].
--- NOTE | 2021-02-17 13:03 | NUR ---
ALLA FROM [facility] FOR BED UPDATE. AND ALSO REQUESTING FOR A COVID PCR TEST.
--- NOTE | 2021-02-17 14:56 | NUR ---
CALLED FROM [facility]. ACCEPTED BY DR WOODS. GOING TO [facility] UNIT/ 122.A NUMBER FOR REPORT: [phone]
--- NOTE | 2021-02-17 14:58 | NUR ---
CALLED [facility] TRANSPORT 90 MIN ETA PER JUANA.
[2021-02-17 15:05] VITALS: BP 146/85
--- NOTE | 2021-02-17 15:23 | NUR ---
REPORT GIVEN TO VENITA ZAVALA. PT AWAITING TRANSPORT TO [facility].
== END 2021-02-17 17:10 ==
LOC: ER 18:34
DX: R45.851 Suicidal ideations (principal); F29 Unspecified psychosis not due to a substance or known physiological condition; F15.10 Other stimulant abuse, uncomplicated; Z82.49 Family history of ischemic heart disease and other diseases of the circulatory system; Z20.822 Contact with and (suspected) exposure to COVID-19; R03.0 Elevated blood-pressure reading, without diagnosis of hypertension; E11.9 Type 2 diabetes mellitus without complications; F20.9 Schizophrenia, unspecified
CPT/HCPCS: 36415; 80048; 80076; 80143; 80307; 80320; 81001; 84484; 85025; 87426; 93005; 96372; 99285; C9803 ×2; J3490; U0003; G0480

== ENCOUNTER 2021-07-24 16:55 | Inpatient (IN) | payer OTHER ==
[~2021-07-24] VITALS: Ht 167.6 cm; Wt 100.2 kg
--- NOTE | 2021-07-24 16:55 | NUR ---
PT BIBRA 60 AND [employer] C/O SI "I WANT TO STAB MY SELF" +METH USE TODAY. PT IS AAOX3, NOT IN RESPIRATORY DISTRESS, HOOKED TO V/S MONITOR, KEPT RESTED AND COMFORTABLE. WILL CONTINUE TO MONITOR.
[2021-07-24] MEDS ORDERED: diphenhydrAMINE HCL 50 MG/ML VIAL IM ONE (17:30)
[2021-07-24] MEDS ORDERED: diphenhydrAMINE HCL 50 MG/ML VIAL ONE (17:30)
[2021-07-24] MEDS ORDERED: LORAZEPAM INJ 2 MG/ML VIAL ONE ×2 (17:30→23:53)
[2021-07-24] MEDS ORDERED: IV NS 0.9% 1,000 ML BAG IV ONE (17:30)
[2021-07-24] MEDS ORDERED: LORAZEPAM INJ 2 MG/ML VIAL IM ONE (17:30)
[2021-07-24 17:33] LABS: CALCIUM, SERUM 9.8 mg/dL (8.5-10.1); CARBON DIOXIDE 25 mmol/L (21-32); CHLORIDE 105 mmol/L (98-107); CREATININE 1.4 mg/dL (0.6-1.3); GLUCOSE 134 mg/dL (74-106); POTASSIUM 3.8 mmol/L (3.5-5.1); SODIUM SERUM 144 mmol/L (136-145); UREA NITROGEN, BLOOD 16 mg/dL (7-18)
--- NOTE | 2021-07-24 17:33 | NUR ---
CALLED [facility] [phone] SPOKE WITH SONNY HURT OBSERVATION SIX (6) HOURS. LABS FOR CMP, ASA, TYLENOL, UA DRUG SCREEN, EKG. WATCH CARE PROFESSIONAL RESPIRATORY DEPRESSION, HYPOTENSION, TACHYCARDIA, SEIZURE PRECAUTION. WITH EKG LOOK FOR QTC PROLONGATION IF SO ELECT OPTIMIXATION OF ELECTROLYTES.
[2021-07-24 17:39] LABS: BASOPHILS # (AUTO) 0.1 K/uL (0.0-0.2); BASOPHILS % (AUTO) 0.5 % (0.0-2.0); EOSINOPHILS % (AUTO) 0.1 % (0.0-6.0); HEMATOCRIT 46 % (39-51); HEMOGLOBIN 15.4 g/dL (13.5-17.5); LYMPHOCYTES % (AUTO) 14.1 % (20.0-44.0); MEAN CORPUSCULAR HGB CONC 33 g/dl (31.0-36.0); MEAN CORPUSCULAR VOLUME 90 fL (80-96); MONOCYTES % (AUTO) 6.7 % (2.0-12.0); NEUTROPHILS # (AUTO) 11.4 K/uL (1.8-8.9); NEUTROPHILS % (AUTO) 78.6 % (43.0-81.0); PLATELET COUNT (AUTO) 311 K/uL (150-450); RED BLOOD CELL COUNT(AUTO) 5.15 MIL/uL (4.5-6.0); WHITE BLOOD COUNT (AUTO) 14.5 K/uL (4.3-11.0)
[2021-07-24 17:51] LABS: ACETAMINOPHEN 0 ug/ml (10-30); ALANINE AMINOTRANSFERASE 53 U/L (12-78); ALBUMIN 4.6 g/dL (3.4-5.0); ALCOHOL, BLOOD 3 mg/dL (0-0); ALKALINE PHOSPHATASE 92 U/L (46-116); ASPARTATE AMINOTRANSFERASE 34 U/L (15-37); BILIRUBIN,DIRECT 0.1 mg/dL (0.0-0.2); BILIRUBIN,TOTAL 0.4 mg/dL (0.2-1.0); TOTAL PROTEIN, SERUM 9.1 g/dL (6.4-8.2)
--- NOTE | 2021-07-24 17:57 | NUR ---
PATIENT STILL UNABLE TO PROVIDE URINE SAMPLE AT THIS TIME
--- NOTE | 2021-07-24 18:15 | NUR ---
CORAL FROM [facility] CALLED SPEAKING WITH DR. RODRIGUEZ.
--- NOTE | 2021-07-24 18:31 | NUR ---
COVID SWAB DONE AND SENT TO LAB
--- NOTE | 2021-07-24 19:35 | NUR ---
RECEIVED REPORT FROM GEOFFREY ZAVALA FOR JADEN
--- NOTE | 2021-07-24 19:43 | NUR ---
PT RESTING COMFORTABLY IN BED, UNABLE TO PROVIDE URINE SAMPLE AT THIS TIME. WATER PROVIDED.
[2021-07-24] MEDS ORDERED: ONDANSETRON HCL/PF 4 MG/2 ML VIAL IVP PRN (20:00)
[2021-07-24] MEDS ORDERED: ACETAMINOPHEN 325 MG TABLET PO PRN (20:00)
[2021-07-24] MEDS ORDERED: MORPHINE SULFATE INJ 2 MG/ML DISP.SYRIN IV PRN (20:00)
--- NOTE | 2021-07-24 20:00 | NUR ---
COVID SWAB COLLECTED AND SENT TO LAB
[2021-07-24] MEDS ORDERED: hydrALAZINE HCL IV 20 MG VIAL IV PRN (20:30)
[2021-07-24] MEDS: IV NS 0.9% 1,000 ML IV SCH (20:43)
--- NOTE | 2021-07-24 20:48 | NUR ---
CALLED [facility] @[phone] PRINCE FOR CRITICAL LAB RESULTS
--- NOTE | 2021-07-24 20:52 | NUR ---
RECEIVED CALL FROM DR PRINCE, NOTIFIED HIM OF EVELATED LACTIC ACID. ORDERS: CONTINUE FLUIDS AND NOTIFY HIM IF CREATINE KINASE RETURNS >1000
[2021-07-24] MEDS ORDERED: HEPARIN SODIUM, PORCINE 5000 UNITS/1 ML VIAL ONE (21:07)
[2021-07-24] MEDS: HEPARIN SODIUM, PORCINE 5000 UNITS/1 ML VIAL SQ SCH (21:10)
--- NOTE | 2021-07-24 21:16 | NUR ---
PT STILL UNABLE TO PROVIDE URINE , WATER PROVIDED
--- NOTE | 2021-07-24 23:06 | NUR ---
BAD CLOTH CHECKER AT PT'S BEDSIDE
--- NOTE | 2021-07-24 23:51 | NUR ---
S/W CORAL FROM [facility], PROVIDED HER WITH LAB AND VITAL SIGN UPDATE. RECOMMENDS LAB REPEAT IN THE AM
[2021-07-25] MEDS ORDERED: LORAZEPAM INJ 2 MG/ML VIAL IV ONE
[2021-07-25] MEDS ORDERED: IV NS 0.9% 500 ML BAG IV ONE
[2021-07-25 00:09] LABS: BILIRUBIN,URINE NEGATIVE (NEGATIVE); COLOR,URINE YELLOW (YELLOW); LEUKOCYTE ESTERASE ,URINE NEGATIVE (NEGATIVE); NITRITE, URINE NEGATIVE (NEGATIVE); PROTEIN,URINE TRACE mg/dl (NEGATIVE); UGLUCOSE NEGATIVE (NEGATIVE); UROBILINOGEN,URINE 0.2 EU/dL (0.2)
--- NOTE | 2021-07-25 01:05 | NUR ---
PROVIDED PT WITH SNACKS AND WATER, WILL CONTINUE TO MONITOR
[2021-07-25] MEDS: IV NS 0.9% 1,000 ML IV SCH (04:08)
--- NOTE | 2021-07-25 05:00 | NUR ---
PT RESTING COMFORTABLY IN BED, DENIES ANY PAIN AT THIS TIME. WILL CONTINUE TO MONITOR.
--- NOTE | 2021-07-25 05:34 | NUR ---
LAB AT BEDSIDE
[2021-07-25] MEDS ORDERED: hydrALAZINE HCL IV 20 MG VIAL ONE (05:53)
[2021-07-25] MEDS: hydrALAZINE HCL IV 20 MG VIAL IV PRN ×2 (05:57→10:26)
--- NOTE | 2021-07-25 05:57 | NUR ---
ELEVATED BP NOTED 185/126. WILL GIVE PRN HYDRALAZINE PER DOCTORS ORDERS. WILL CONTINUE TO MONITOR.
[2021-07-25] MEDS ORDERED: LORAZEPAM INJ 2 MG/ML VIAL IV PRN (06:00)
[2021-07-25 06:10] LABS: BASOPHILS # (AUTO) 0.1 K/uL (0.0-0.2); BASOPHILS % (AUTO) 0.6 % (0.0-2.0); EOSINOPHILS % (AUTO) 0.8 % (0.0-6.0); HEMATOCRIT 40 % (39-51); HEMOGLOBIN 13.5 g/dL (13.5-17.5); LYMPHOCYTES # (AUTO) 2.3 K/uL (0.8-4.8); LYMPHOCYTES % (AUTO) 23.5 % (20.0-44.0); MEAN CORPUSCULAR HGB CONC 34 g/dl (31.0-36.0); MEAN CORPUSCULAR VOLUME 89 fL (80-96); MONOCYTES # (AUTO) 0.8 K/uL (0.1-1.30); MONOCYTES % (AUTO) 8.5 % (2.0-12.0); NEUTROPHILS # (AUTO) 6.6 K/uL (1.8-8.9); NEUTROPHILS % (AUTO) 66.6 % (43.0-81.0); PLATELET COUNT (AUTO) 248 K/uL (150-450); RED BLOOD CELL COUNT(AUTO) 4.53 MIL/uL (4.5-6.0); WHITE BLOOD COUNT (AUTO) 9.9 K/uL (4.3-11.0)
[2021-07-25 06:32] LABS: ALBUMIN 3.9 g/dL (3.4-5.0); BILIRUBIN,TOTAL 0.6 mg/dL (0.2-1.0); CALCIUM, SERUM 8.1 mg/dL (8.5-10.1); MAGNESIUM 2.1 mg/dL (1.8-2.4); PHOSPHORUS 2.9 mg/dL (2.5-4.9); POTASSIUM 3.6 mmol/L (3.5-5.1); TOTAL PROTEIN, SERUM 7.5 g/dL (6.4-8.2)
[2021-07-25] MEDS ORDERED: IV NS 0.9% 1,000 ML IV PRN (08:09)
--- NOTE | 2021-07-25 08:45 | NUR ---
REPORT GIVEN TO CARINA FOR JADEN
--- NOTE | 2021-07-25 09:00 | NUR ---
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 PT ARRIVED VIA GURNEY. A/O X2-3. PT HYPERVERBAL AND RESTLESS. BREATHING IS EVEN AND UNLABORED. NO S/SX OF ACUTE DISTRESS NOTED. NO SOB. IV ACCESS LHAND#20 PATENT AND INTACT. PT REFUSING IV FLUIDS. PT PLACED ON EXTERNAL GUITAR TECHNICIAN WITH ST READING 108. ORIENTED PT TO ROOM, STAFF AND CALL LIGHT. SAFETY MEASURES IN PLACE WITH BED LOCKED IN LOW POSITION. SIDE RAILS UP X 2. WILL CONTINUE TO MONITOR PATIENT THROUGHOUT SHIFT.
--- NOTE | 2021-07-25 09:09 | NUR ---
PT TRANSPORT TO BED 323-2 IN STABLE CONDITION WITH ACLS PROTOCOLS IN PLACE
[2021-07-25 09:45] VITALS: BP 152/104
[2021-07-25] MEDS: HEPARIN SODIUM, PORCINE 5000 UNITS/1 ML VIAL SQ SCH (10:18)
[2021-07-25 12:00] VITALS: BP 137/78
--- NOTE | 2021-07-25 14:49 | NUR ---
"SS Note: Pt. Is a 46-year-old male who demonstrates adequate insight to the reason for hospitalization. Per EMR, pt. was brought in by [employer] and EMS. Pt. claims he took 60 Zyprexa pills but when asked by SW, pt. denied. Pt. was oriented x3, alert, and cooperative. During interview, pt. was capable of following directions and appeared unkempt. Pt.s speech was at a normal rate and pt.s mood was elevated. Pt. reported no hx of mental health, substance abuse, suicidal ideation, or homicidal ideation. Pt. denies auditory hallucinations, visual hallucinations, paranoia, or delusions. Per EMR, pt. is positive for methamphetamine. SW explored pt.s living situation. Per pt., he lives with his sister Awilda [[address] [address]]. Pt. denied suicidal ideation and stated that he never tried hurting himself nor have a plan. Pt. stated that [facility] [place] but does not remember the name. Pt. mentioned it was a few years ago. Pt. expressed that he wants to go back to his sisters house. DORIAN spoke with pt.s nurse Tammy, and she stated that a psychiatrist will be coming to evaluate pt. Plan: SW provided available resources and pt. accepted. Pt. stated that he is not homeless and lives with his sister, Awilda. A psychiatrist will be coming to evaluate pt. Resources Provided: Year-round shelters: [place] [facility] [address], [place] [phone] ; [facility] [address] [place] [address]; [facility] [id number] [facility] [address] Winter Shelters: [facility] [place] [employer] Provider: [facility] [place] Address: [address] [facility] [place], [address] # of Beds: 47 Population Served: [facility] 6 | [facility] Izabela Prather Lynne Provider: [facility] Address: [address] [facility], [address] # of Beds: 66 Population Served: [employer] [place] Provider: First to Serve Address: [address] [facility], [address] # of Beds: 56 Population Served: Kayley Huang Batista Provider: SSSiria[facility] Address: [address] [facility], [address] # of Beds: 49 Population Served: [facility] SPA 8 | [facility] Provider: First to Serve Address: [address] [facility], [address] # of Beds: 37 Population Served: [facility] Hygiene: [facility]: [address] [facility] [facility] ; [facility] [address] [facility] ; [facility] 10[address] [facility] . Food Resources: [place] [facility] at [facility]- [address] [facility]; Meet Each Need with Dignity ([facility]) [address] [facility]; [facility] Food Pantry 9676 [facility]; [facility] 8516 [facility]. Mental Health resources provided: [facility] [address] [place], [place] [id number] ; [facility] [address] [facility] [address], [place], [place] [id number] ; [place] [facility] [address] [place] [address] ; [facility] [address] [place], [place] [phone] Healthcare Clinics: [facility] [address] [facility], [address] [place]. [place] ; [facility] [address] [facility] [address] [place] [address]; [facility] [address] [facility] [place] [address] 862) [phone] Counseling--Outpatient [facility] [address], [address] [place], [place] [address] (Specializes in in-depth psychotherapy for emotional distress: anxiety, depression, interpersonal conflicts, life transitions, childhood abuse) [facility] [address] [place], [place] [phone] (Assist with solving problem marital difficulties, separation & divorce, aging parents, & grief, chronic & terminal illness) [facility] [address] [place] [address] (Deal with loss & grief, anxiety, marital difficulties) Homebound/Mental Health Services [address] [facility] [address] [place], [place] [phone] (Provide in-home mental services to people who are incapable of leaving their homes) [facility] for Needs of the Elderly Senior Service/Resource Center [address] [place] [address] [facility] [address], [place] [address] PSYCHIATRIC OUTPATIENT SERVICES [facility] Partial Hospitalization and Intensive Outpatient Program (Managed Care and [place] Only)[address] [facility] [phone] [facility] Partial Hospitalization and Outpatient Ritriah[address] [facility] [address] [place], [place] [phone] [facility] Jri[address] [facility] [address] [place], [place] [phone] [facility] Partial Hospitalization and Outpatient [id number] eli[place]us[place], [phone] Substance Abuse resources provided included: [facility] Substance Abuse Self-Helpline (SAS) ; CRI [facility]HELP [address] [facility] [phone] ; [facility] [place] [address] [facility] [address] ; [facility] [address] [place] [address] ; [facility] [address] [facility] [address] ; [facility] 4940 Rafat Gr[address] [facility] [address] ; [facility] 9[address] [facility] [address] ; [facility] Substance Abuse Helpline(SAS)[facility] ; [facility] ; [facility]; [facility] [place]; [facility] [place]; [facility] Rafat [place]; [facility] [place]; [facility] [place]; [facility] [place]; [facility], [facility]. [place]; Alcoholics Anonymous -SFV; Ah-Avch-Yknuvpz ; Marijuana Anonymous -SFV; Narcotics Anonymous www.[email or web address];"
--- NOTE | 2021-07-25 15:00 | NUR ---
RN NOTE CALLED ART [phone] FOR CRISIS EVALUATION. PROVIDED ART WITH PT INFORMATION AND STATES HE WILL CALL US BACK.
[2021-07-25 16:00] VITALS: BP 125/53
--- NOTE | 2021-07-25 16:28 | NUR ---
RN NOTE ART FROM CRISIS TEAM CALLED BACK STATING OXIDE FURNACE TENDER IS TAKING CARE OF CASE. I SPOKE WITH JAYCEE OXIDE FURNACE TENDER AND SHE SAYS HE IS NO LONGER SUICIDAL AND DENIES ANY SUICIDAL THOUGHTS; DENIES HURTING HIMSELF; DENIES HURTING OTHERS.. VENITA BARRETT, YANI MADE AWARE. Addendum: 07/25/21 at 1630 by CARINA ROOT RN RN NOTE ART FROM CRISIS TEAM CALLED BACK STATING OXIDE FURNACE TENDER IS TAKING CARE OF CASE. I SPOKE WITH JAYCEE OXIDE FURNACE TENDER AND SHE SAYS HE IS NO LONGER SUICIDAL AND DENIES ANY SUICIDAL THOUGHTS; DENIES HURTING HIMSELF; DENIES HURTING OTHERS.. VENITA BARRETT NP MADE AWARE.
--- NOTE | 2021-07-25 17:45 | NUR ---
RN NOTE NOTIFIED VENITA BARRETT NP PT IS REFUSING TO HAVE TELE BOX MONITOR ON
--- NOTE | 2021-07-25 19:00 | NUR ---
STUMP SHOOTER CLOSING NOTE PT IN AWAKE, SITTING AT THE EDGE OF BED. PT CALM AT THIS TIME. A/O X3. NO S/SX OF ACUTE DISTRESS NOTED. NO SOB. BREATHING IS EVEN AND UNLABORED. PT REFUSING CARDIAC TELE BOX AND IV FLUIDS; MADE AWARE. IV ACCESS RHAND#20 PATENT AND INTACT. SAFETY MEASURES IN PLACED. ALL NEED MET THROUGHOUT SHIFT. DENIES SUICIDAL IDEATIONS. AWAITING CRISIS TEAM INTERVENTION/EVAL. CALL LIGHT IS WITHIN REACH. PT WITH 1:1 SITTER AT BEDSIDE. WILL ENDORSE CONTINUITY OF CARE TO ONCOMING SHIFT.
--- NOTE | 2021-07-25 19:30 | NUR ---
DAY HABILITATION SUPERVISOR OPENING NOTE RECEIVED PT IN BED AWAKE. A/O X3. PT STABLE ON ROOM AIR. NO SOB OR S/S OF RESPIRATORY DISTRESS NOTED. BREATHING EVEN AND UNLABORED. PT REFUSING EXTERNAL COMMUNITY SERVICE REPRESENTATIVE AND IVF AT THIS TIME, WAS ALREADY MADE AWARE. IV ACCESS R HAND#20 INTACT AND PATENT. SAFETY PRECAUTIONS IN PLACE. BED IN LOWEST LOCKED POSITION, HOB ELEVATED, SIDE RAILS UP X2, AND CALL LIGHT AND TABLE WITHIN REACH. DENIES SUICIDAL IDEATION AT THIS TIME. AWAITING CRISIS TEAM INTERVENTION/EVAL. PT WITH 1:1 SITTER AT BEDSIDE. ALL NEEDS MET AT THIS TIME.
--- NOTE | 2021-07-25 19:32 | NUR ---
RN OPENING NOTE PATIENT AWAKE IN BED. A/OX1. NO S/S OF DISTRESS, BREATHING ON RM AIR W/O DIFFICULTY. LH & RAC #[address] MON[address] 120. SAFETY MEASURES IN PLACE: BED AT LOWEST POSITION, LOCKED, RAILS UP X3, CALL CAMPBELL WITHIN REACH. WILL CONTINUE TO MONITOR PATIENT. Addendum: 07/25/21 at 2024 by EDITH JAMES RN CORRECT PATIENT
[2021-07-25 20:00] VITALS: BP 116/66
--- NOTE | 2021-07-25 20:00 | NUR ---
RN NOTE PT SEEN BY SG OF THE CRISIS TEAM. PT HAS AGREED TO GO VOLUNTARILY TO [facility] FOR PSYCH ADMISSION. [facility]. AWAITING CALL BACK REGARDING BED STATUS SO TRANSFER CAN BE FACILITATED.
[2021-07-26] VITALS: BP 120/67
--- NOTE | 2021-07-26 02:15 | NUR ---
RN NOTE PT REMOVED IV ACCESS. TRIED TO INSERT IV ACCESS AT ANOTHER SITE BUT PATIENT REFUSED AND STATED "I DO NOT WANT TO BE POKED AGAIN". CHARGE NURSE ANDRZEJ MADE AWARE. ALL NEEDS MET AT THIS TIME.
[2021-07-26 04:00] VITALS: BP 119/67
--- NOTE | 2021-07-26 06:59 | NUR ---
APPLICATION SUPPORT CONSULTANT CLOSING NOTE PT IN BED AWAKE. A/O X3. PT STABLE ON ROOM AIR. NO SOB OR S/S OF RESPIRATORY DISTRESS NOTED. BREATHING EVEN AND UNLABORED. PT REFUSING EXTERNAL ANIMAL CRUELTY INVESTIGATION SUPERVISOR AND IVF AT THIS TIME, ALREADY MADE AWARE. IV ACCESS REFUSED BY PT AT THIS TIME. EXPLAINED RISKS BUT PT STILL REFUSED, CHARGE NURSE ANDRZEJ AWARE. SAFETY PRECAUTIONS IN PLACE AT ALL TIMES. BED IN LOWEST LOCKED POSITION, HOB ELEVATED, SIDE RAILS UP X2, AND CALL LIGHT AND TABLE WITHIN REACH. DENIES SUICIDAL IDEATION AT THIS TIME. AWAITING [facility] AT [facility]. PT WITH 1:1 SITTER AT BEDSIDE. ALL NEEDS MET AT THIS TIME AND WILL ENDORSE TO ONCOMING NURSE FOR JADEN.
--- NOTE | 2021-07-26 07:35 | NUR ---
RN OPENING NOTES PATIENT IN BED RESTING, AWAKE, A/O X 3. NO S/S OF PAIN NOTED AT THIS TIME. ON ROOM AIR, NO DISTRESS OR SHORTNESS OF BREATH NOTED. FALL AND SAFETY MEASURES IN PLACE, BED ALARM ON, BED IN LOW AND LOCK POSITION, CALL LIGHT AND TABLE WITHIN EASY REACH, SIDE RAILS UP X2. WILL CONTINUE TO MONITOR.
--- NOTE | 2021-07-26 10:45 | NUR ---
SS Note: Pt. pending placement at [facility]. However, pt. verbalized wanting to leave AMA. DORIAN met with pt. at bedside to assist with discharge planning. Pt. is alert & oriented x 4 and appears restless, pacing. The pt. has anxious mood and flat affect. Pt. denies current SI/HI and denies hallucinations. Pt. has appropriate insight and good fair judgement. DORIAN explored pt.'s discharge plan. Pt. stated he plans to return to his sister, Awilda's home [[address], [place] [address]]. DORIAN offered to help patient call sister to spick him up ad patient states his sister works and will not be able to pick him up and he rather go via bus. DORIAN provided TAP acrd and bus route to home and pt. accepted it. Yesica ALARCON previously provided pt. with mental health and addiction resources and pt. accepted them. DORIAN discussed discharge plan with RNFadia.
--- NOTE | 2021-07-26 13:10 | NUR ---
STEAMFITTER NOTE PATIENT LEFT HOSPITAL AMA IN STABLE MEDICAL CONDITION. PATIENT PENDING PLACEMENT AT [facility] BUT PATIENT SAID HE DID NOT AGREE WITH PLACEMENT, DOCTOR INFORMED. A/O X4. PATIENT DENIES CURRENT SI/HI AND DENIES HALLUCINATIONS. PATIENT HAS APPROPRIATE INSIGHT AND GOOD FAIR JUDGEMENT. V/S TAKEN, STABLE AND RECORDED. NO IV ACCESS. REFUSED SKIN ASSESSMENT BUT PER PREVIOUS ASSESSMENT SKIN IS INTACT. NAME ARM BAND REMOVED. ALL BELONGINGS CHECKED AND SIGNED. HEALTH TEACHING AND DISCHARGE INSTRUCTIONS GIVEN AND VERBALIZED UNDERSTANDING. PATIENT LEFT UNIT AMBULATING WITH NO SIGNS OF DISTRESS, ACCOMPANIED BY RN TO THE LOBBY. RESPIRATORY THERAPY DIRECTOR CONSULT PROVIDED BEFORE DISCHARGE, BUS CARD PROVIDES. CHARGE NURSE AWARE OF DISCHARGED. Addendum: 07/26/21 at 1402 by Fadia Sánchez RN PATIENT WAS TOLD ABOUT THE RISK AND CONSEQUENCES INVOLVED IN LEAVING THE HOSPITAL, THE BENEFITS OF CONTINUE TREATMENT AND HOSPITALIZATION.
== END 2021-07-26 13:10 | disposition left against medical advice (07) | DRG 817 ==
LOC: ER 16:56 → TRANSITION 20:22 → TELE 07-25 08:32
PROVIDERS: ADMIT Internal Medicine; ATTEND Student in an Organized Health Care Education/Training Program
DX: T43.592A Poisoning by other antipsychotics and neuroleptics, intentional self-harm, initial encounter (principal); N17.0 Acute kidney failure with tubular necrosis; E87.2 Acidosis; F25.1 Schizoaffective disorder, depressive type; E11.9 Type 2 diabetes mellitus without complications; D72.829 Elevated white blood cell count, unspecified; R45.851 Suicidal ideations; F19.10 Other psychoactive substance abuse, uncomplicated; Y92.89 Other specified places as the place of occurrence of the external cause; I10 Essential (primary) hypertension; Z79.899 Other long term (current) drug therapy; R00.0 Tachycardia, unspecified; F32.A Depression, unspecified; F10.10 Alcohol abuse, uncomplicated; Y90.9 Presence of alcohol in blood, level not specified; F15.159 Other stimulant abuse with stimulant-induced psychotic disorder, unspecified; M62.82 Rhabdomyolysis; Z91.19 Patient's noncompliance with other medical treatment and regimen
CPT/HCPCS: 36415; 74018; 80048-TC; 80053-TC; 80076-TC; 82550-TC; 82553; 83605-TC; 83735-TC; 84100-TC; 84484-TC; 85025-TC; 87081-TC; C9803; G0378; G0480; J0360; J1200; J1644; J2060; J2270; J2405; J7030; J7040

== ENCOUNTER 2022-09-08 21:40 | Emergency (ER) | payer OTHER ==
[~2022-09-08] VITALS: Ht 172.7 cm; Wt 83.9 kg
--- NOTE | 2022-09-08 22:00 | NUR ---
[id number] PT AAO X 4, BREATHING UNLABORED. PT ATTACHED TO MONITOR AND PULSE OX. AWAITING MD ANTUNEZ.
[2022-09-08 23:09] LABS: HEMOGLOBIN 13.7 g/dL (13.5-17.5)
[2022-09-08 23:15] LABS: BASOPHILS % (AUTO) 0.3 % (0.0-2.0); EOSINOPHILS % (AUTO) 0.5 % (0.0-6.0); HEMATOCRIT 41 % (39-51); LYMPHOCYTES # (AUTO) 1.8 K/uL (0.8-4.8); LYMPHOCYTES % (AUTO) 17.3 % (20.0-44.0); MEAN CORPUSCULAR HGB CONC 33 g/dl (31.0-36.0); MEAN CORPUSCULAR VOLUME 88 fL (80-96); MONOCYTES # (AUTO) 0.7 K/uL (0.1-1.30); MONOCYTES % (AUTO) 6.9 % (2.0-12.0); NEUTROPHILS # (AUTO) 7.6 K/uL (1.8-8.9); PLATELET COUNT (AUTO) 279 K/uL (150-450); RED BLOOD CELL COUNT(AUTO) 4.67 MIL/uL (4.5-6.0); WHITE BLOOD COUNT (AUTO) 10.2 K/uL (4.3-11.0)
[2022-09-08 23:24] LABS: ALANINE AMINOTRANSFERASE 45 U/L (12-78); ALBUMIN 3.9 g/dL (3.4-5.0); ALKALINE PHOSPHATASE 76 U/L (46-116); ASPARTATE AMINOTRANSFERASE 24 U/L (15-37); BILIRUBIN,DIRECT 0.1 mg/dL (0.0-0.2); BILIRUBIN,TOTAL 0.4 mg/dL (0.2-1.0); CALCIUM, SERUM 9.9 mg/dL (8.5-10.1); CARBON DIOXIDE 26 mmol/L (21-32); CHLORIDE 99 mmol/L (98-107); CREATININE 0.9 mg/dL (0.6-1.3); GLUCOSE 131 mg/dL (74-106); POTASSIUM 3.8 mmol/L (3.5-5.1); SODIUM SERUM 134 mmol/L (136-145); TOTAL PROTEIN, SERUM 7.8 g/dL (6.4-8.2); UREA NITROGEN, BLOOD 12 mg/dL (7-18)
--- NOTE | 2022-09-09 01:50 | NUR ---
PT ACCEPTED TO [facility], UNIT [address] FANG.
--- NOTE | 2022-09-09 01:54 | NUR ---
[facility] CALLED FOR BLS GOING TO [facility] PER DISPATCH ETA 25 MIN
[2022-09-09 02:21] VITALS: BP 153/102
--- NOTE | 2022-09-09 02:23 | NUR ---
[facility] AT BEDSIDE FOR TRANSPORTATION
--- NOTE | 2022-09-09 02:28 | NUR ---
PT TRANSFERRED TO [facility] VIA AMBULANCE. VS WNL.
== END 2022-09-09 02:30 ==
LOC: ER 21:52
DX: R07.9 Chest pain, unspecified (principal); I10 Essential (primary) hypertension; E11.9 Type 2 diabetes mellitus without complications
CPT/HCPCS: 36415; 71045-TC; 80048-TC; 80076-TC; 84484-TC; 85025-TC

== ENCOUNTER 2023-08-30 21:43 | Emergency (ER) | payer OTHER ==
[~2023-08-30] VITALS: Ht 172.7 cm; Wt 81.6 kg
[2023-08-30] MEDS: LORAZEPAM 1 MG TABLET PO ONE (22:48)
[2023-08-30] MEDS ORDERED: LORAZEPAM 1 MG TABLET ONE (22:48)
[2023-08-30 23:21] LABS: BASOPHILS # (AUTO) 0.1 K/uL (0.0-0.2); BASOPHILS % (AUTO) 0.3 % (0.0-2.0); EOSINOPHILS % (AUTO) 0.2 % (0.0-6.0); HEMATOCRIT 44 % (39-51); HEMOGLOBIN 14.2 g/dL (13.5-17.5); LYMPHOCYTES # (AUTO) 2.4 K/uL (0.8-4.8); LYMPHOCYTES % (AUTO) 14.8 % (20.0-44.0); MEAN CORPUSCULAR HEMOGLOBIN 28 PG (26.0-33.0); MEAN CORPUSCULAR HGB CONC 33 g/dl (31.0-36.0); MEAN CORPUSCULAR VOLUME 85 fL (80-96); MONOCYTES # (AUTO) 1.3 K/uL (0.1-1.30); MONOCYTES % (AUTO) 7.7 % (2.0-12.0); NEUTROPHILS # (AUTO) 12.5 K/uL (1.8-8.9); PLATELET COUNT (AUTO) 310 K/uL (150-450); RED BLOOD CELL COUNT(AUTO) 5.11 MIL/uL (4.5-6.0); RED CELL DISTRIBUTION WIDTH 15.1 % (11.5-15.0); WHITE BLOOD COUNT (AUTO) 16.3 K/uL (4.3-11.0)
[2023-08-30 23:31] LABS: CALCIUM, SERUM 9.9 mg/dL (8.5-10.1); CARBON DIOXIDE 27 mmol/L (21-32); CHLORIDE 100 mmol/L (98-107); CREATININE 1.2 mg/dL (0.6-1.3); GLUCOSE 94 mg/dL (74-106); POTASSIUM 4.2 mmol/L (3.5-5.1); SODIUM SERUM 140 mmol/L (136-145); UREA NITROGEN, BLOOD 15 mg/dL (7-18)
[2023-08-30 23:33] LABS: APPEARANCE,URINE SLIGHTLY CLOUDY (CLEAR); BILIRUBIN,URINE NEGATIVE (NEGATIVE); BLOOD, URINE NEGATIVE Ery/uL (NEGATIVE); COLOR,URINE YELLOW (YELLOW); KETONES,URINE NEGATIVE (NEGATIVE); LEUKOCYTE ESTERASE ,URINE NEGATIVE (NEGATIVE); NITRITE, URINE NEGATIVE (NEGATIVE); PROTEIN,URINE 1+ mg/dl (NEGATIVE); UGLUCOSE NEGATIVE (NEGATIVE); UROBILINOGEN,URINE 0.2 EU/dL (0.2)
[2023-08-30 23:41] LABS: ADD URINE CULTURE NO; BACTERIA,URINE None seen /HPF (None Seen); RBC,URINE 0-2 /HPF (0-2); SQUAMOUS EPITHELIAL CELL,UR Rare /HPF (None Seen); WBC,URINE 0-2 /HPF (0-3)
[2023-08-30 23:44] LABS: BARBITURATE, URINE NEGATIVE (NEGATIVE); BENZODIAZEPINE, URINE NEGATIVE (NEGATIVE); CANNABINOID, URINE NEGATIVE (NEGATIVE); COCCAINE, URINE NEGATIVE (NEGATIVE); OPIATE, URINE NEGATIVE (NEGATIVE); PHENCYCLIDINE SCREEN,URINE NEGATIVE (NEGATIVE)
[2023-08-30 23:44] LABS: ALANINE AMINOTRANSFERASE 76 U/L (12-78); ALBUMIN 4.1 g/dL (3.4-5.0); ALCOHOL, BLOOD < 3 mg/dL (0-10); ALKALINE PHOSPHATASE 86 U/L (46-116); ASPARTATE AMINOTRANSFERASE 45 U/L (15-37); BILIRUBIN,DIRECT 0.1 mg/dL (0.0-0.2); BILIRUBIN,TOTAL 0.4 mg/dL (0.2-1.0); TOTAL PROTEIN, SERUM 9.1 g/dL (6.4-8.2)
[2023-08-30 23:47] LABS: AMPHETAMINE, URINE POSITIVE (NEGATIVE)
[2023-08-30 23:47] LABS: ACETAMINOPHEN <10 ug/ml (10-30); SALICYLATE 2.7 mg/dL (2.8-20.0)
[2023-08-31] MEDS ORDERED: hydrALAZINE HCL 10 MG TABLET PO ONE (02:00)
[2023-08-31] MEDS ORDERED: hydrALAZINE HCL IV 20 MG VIAL ONE (02:07)
[2023-08-31] MEDS: hydrALAZINE HCL IV 20 MG VIAL IV ONE (02:13)
[2023-08-31 03:03] VITALS: BP 135/87; TEMP 98.2; O2SAT 97
== END 2023-08-31 03:03 ==
LOC: ER 21:46
DX: F32.A Depression, unspecified (principal); F20.9 Schizophrenia, unspecified; F15.10 Other stimulant abuse, uncomplicated; F10.10 Alcohol abuse, uncomplicated; I10 Essential (primary) hypertension; E11.9 Type 2 diabetes mellitus without complications; Z86.79 Personal history of other diseases of the circulatory system; Z87.19 Personal history of other diseases of the digestive system; Z20.822 Contact with and (suspected) exposure to COVID-19; Y90.9 Presence of alcohol in blood, level not specified
CPT/HCPCS: 99285; 85025; 80048; 80076; 81001; 36415; 87426; 80143; 80320; 80307; 96374; J0360; G0480